=== PATIENT | female | born 1945 | race Caucasian/White ===

== ENCOUNTER → 2017-10-16 | Outpatient (CLI) | payer MEDICARE ==
[~2017-10-16] MED LIST: ALLO100T PO; ASCO10007 PO; ASPI-555 PO; BENZ200C53 PO; BETA1TAB18 PO; BI EST VG; CARV25TA PO; CHOL100018 PO; CLOBETASOL CREAM TP; CLOP75TA14 PO; FERR-63 PO; FURO20TA4 PO; GABA-318 PO; GABA-531 PO; INSU100V12 SQ; ISOS30TA6 PO; LEVO50TA11 PO; MAGN250T10 PO; OMEP40CA37 PO; OXYB5TAB10 PO; PARO40TA72 PO; SERT50TA PO; SIMV40TA59 PO; TRAM50TA2; TYL3 PO; ZOLP10TA6 PO
[2017-10-16 16:20] LABS: CREATININE 2.1 mg/dL (0.5-1.5); POTASSIUM 4.5 mmol/L (3.5-5.1)
== END | disposition home or self-care (01) ==
LOC: LAB 15:36
PROVIDERS: ATTEND Internal Medicine Cardiovascular Disease
DX: I73.9 Peripheral vascular disease, unspecified (principal); I13.0 Hypertensive heart and chronic kidney disease with heart failure and stage 1 through stage 4 chronic kidney disease, or unspecified chronic kidney disease; I50.22 Chronic systolic (congestive) heart failure; N18.3 Chronic kidney disease, stage 3 (moderate); E78.5 Hyperlipidemia, unspecified; E08.21 Diabetes mellitus due to underlying condition with diabetic nephropathy
CPT/HCPCS: 36415; 80048

== ENCOUNTER 2017-11-22 12:40 | Emergency (ER) | payer MEDICARE ==
[2017-11-22 14:08] LABS: BASOPHILS % (AUTO) 1.1 % (0.0-5.0); EOSINOPHILS % (AUTO) 5.4 % (0.0-8.0); HEMATOCRIT 35.3 % (36-48); LYMPHOCYTES % (AUTO) 22.8 % (21.0-51.0); MEAN CORPUSCULAR HEMOGLOBIN 33.3 pg (27.0-33.0); MEAN CORPUSCULAR HGB CONC 34.2 g/dL (32.0-36.0); MEAN CORPUSCULAR VOLUME 97.5 fL (79-99); MONOCYTES % (AUTO) 8.6 % (3.0-13.0); NEUTROPHILS % (AUTO) 62.1 % (40.0-77.0); PLATELET COUNT (AUTO) 194 K/uL (130-400); RED BLOOD CELL COUNT(AUTO) 3.62 MIL/uL (4.00-5.50); RED CELL DISTRIBUTION WIDTH 14.3 % (11.0-15.5); WHITE BLOOD COUNT (AUTO) 8.5 K/uL (4.8-10.8)
== END 2017-11-22 16:13 | disposition home or self-care (01) ==
LOC: EDH 12:40
DX: J16.8 Pneumonia due to other specified infectious organisms (principal); J44.9 Chronic obstructive pulmonary disease, unspecified; E11.9 Type 2 diabetes mellitus without complications; E78.5 Hyperlipidemia, unspecified; I10 Essential (primary) hypertension; Z95.1 Presence of aortocoronary bypass graft; Z90.710 Acquired absence of both cervix and uterus; Z90.49 Acquired absence of other specified parts of digestive tract; Z98.890 Other specified postprocedural states; Z87.891 Personal history of nicotine dependence
CPT/HCPCS: 36415; 71046; 85025

== ENCOUNTER → 2017-12-07 | Outpatient (CLI) | payer MEDICARE | END | disposition home or self-care (01) | LOC: SHCH 14:14 | PROVIDERS: ATTEND Internal Medicine Cardiovascular Disease | DX: I42.9 Cardiomyopathy, unspecified (principal) | CPT/HCPCS: 93306 ==

== ENCOUNTER 2018-07-17 12:42 | Emergency (ER) | payer MEDICARE ==
[2018-07-17 13:31] LABS: BASOPHILS % (AUTO) 1.4 % (0.0-5.0); EOSINOPHILS % (AUTO) 4.4 % (0.0-8.0); HEMATOCRIT 37.9 % (36-48); LYMPHOCYTES % (AUTO) 22.1 % (21.0-51.0); MEAN CORPUSCULAR HEMOGLOBIN 31.6 pg (27.0-33.0); MEAN CORPUSCULAR HGB CONC 33.8 g/dL (32.0-36.0); MEAN CORPUSCULAR VOLUME 93.5 fL (79-99); MONOCYTES % (AUTO) 6.5 % (3.0-13.0); NEUTROPHILS % (AUTO) 65.6 % (40.0-77.0); PLATELET COUNT (AUTO) 220 K/uL (130-400); RED BLOOD CELL COUNT(AUTO) 4.06 MIL/uL (4.00-5.50); RED CELL DISTRIBUTION WIDTH 15.1 % (11.0-15.5)
[2018-07-17 13:41] LABS: CREATININE 1.6 mg/dL (0.5-1.5)
[2018-07-17 13:46] LABS: INR 0.95 (0.85-1.15); PARTIAL THROMBOPLASTIN TIME 26.4 SEC (26.3-35.5)
[2018-07-17] MEDS ORDERED: SODIUM CHLORIDE 0.9% 1000ML 1,000 ML IV ONE (15:12)
[2018-07-17] MEDS ORDERED: IOHEXOL-350 75 ML VIAL IV ONE (16:03)
[2018-07-17] MEDS ORDERED: IOHEXOL-350 50ML VIAL IV ONE (16:03)
== END 2018-07-17 23:49 | disposition home or self-care (01) ==
LOC: EDH 12:42
DX: I97.630 Postprocedural hematoma of a circulatory system organ or structure following a cardiac catheterization (principal); Y83.8 Other surgical procedures as the cause of abnormal reaction of the patient, or of later complication, without mention of misadventure at the time of the procedure; Y82.8 Other medical devices associated with adverse incidents
CPT/HCPCS: 36415; 75635; 76882; 80048; 82948; 85025; 85610; 85730; 99285; J7030; Q9967 ×2

== ENCOUNTER → 2018-10-07 | Outpatient (CLI) | payer MEDICARE ==
[~2018-10-07] MED LIST changes: -GABA-318 PO; +GABA600T10 PO
== END | disposition home or self-care (01) ==
LOC: RAH 07:46
PROVIDERS: ATTEND Internal Medicine Gastroenterology
DX: R93.3 Abnormal findings on diagnostic imaging of other parts of digestive tract (principal)
CPT/HCPCS: 74270

== ENCOUNTER 2019-01-02 09:25 | Inpatient (IN) | payer MEDICARE ==
[~2019-01-02] VITALS: Ht 157.5 cm; Wt 74.5 kg
[~2019-01-02 09:25] MED LIST changes: +DOXY100C2 PO
[2019-01-02] MEDS ORDERED: AMPICILLIN SODIUM/SULBACTAM NA 1.5GM VIAL ONE (09:58)
[2019-01-02] MEDS ORDERED: SODIUM CHLORIDE 0.9% 100 ML IV ONE (09:58)
[2019-01-02 10:09] LABS: CREATININE 2.2 mg/dL (0.5-1.5); POTASSIUM 4.1 mmol/L (3.5-5.1)
[2019-01-02 10:10] LABS: BASOPHILS % (AUTO) 0.7 % (0.0-5.0); EOSINOPHILS % (AUTO) 2.7 % (0.0-8.0); LYMPHOCYTES % (AUTO) 16.6 % (21.0-51.0); MEAN CORPUSCULAR HEMOGLOBIN 31.8 pg (27.0-33.0); MEAN CORPUSCULAR HGB CONC 34.1 g/dL (32.0-36.0); MEAN CORPUSCULAR VOLUME 93.3 fL (79-99); MONOCYTES % (AUTO) 9.4 % (3.0-13.0); NEUTROPHILS % (AUTO) 70.6 % (40.0-77.0); PLATELET COUNT (AUTO) 189 K/uL (130-400); RED BLOOD CELL COUNT(AUTO) 3.65 MIL/uL (4.00-5.50); WHITE BLOOD COUNT (AUTO) 8.9 K/uL (4.8-10.8)
[2019-01-02 10:14] LABS: ALBUMIN 3.3 g/dL (3.5-5.0); BILIRUBIN,TOTAL 0.3 mg/dL (0.2-1.0); TOTAL PROTEIN, SERUM 7.6 g/dL (6.0-8.3)
[2019-01-02] MEDS ORDERED: VANCOMYCIN 1GM+NS 250ML 250 ML IV ONE (10:31)
[2019-01-02] MEDS ORDERED: ACETAMINOPHEN 325 MG TAB ONE (11:03)
[2019-01-02 12:30] VITALS: BP 131/64
[2019-01-02] MEDS ORDERED: ZOSYN 3.375GM+NS 50ML 50 ML IV SCH (13:30)
[2019-01-02] MEDS ORDERED: ONDANSETRON HCL 4 MG/2 ML VIAL IV PRN (14:15)
[2019-01-02] MEDS ORDERED: ACETAMINOPHEN 325 MG TAB PO PRN ×2 (14:15)
[2019-01-02] MEDS: SODIUM CHLORIDE 0.9% 1000ML 1,000 ML IV SCH (14:49)
[2019-01-02 14:59] LABS: BASOPHILS % (AUTO) 0.9 % (0.0-5.0); EOSINOPHILS % (AUTO) 2.4 % (0.0-8.0); HEMATOCRIT 33.4 % (36-48); LYMPHOCYTES % (AUTO) 23.9 % (21.0-51.0); MEAN CORPUSCULAR HEMOGLOBIN 31.4 pg (27.0-33.0); MEAN CORPUSCULAR HGB CONC 33.5 g/dL (32.0-36.0); MEAN CORPUSCULAR VOLUME 93.7 fL (79-99); MONOCYTES % (AUTO) 8.4 % (3.0-13.0); NEUTROPHILS % (AUTO) 64.4 % (40.0-77.0); NUCLEATED RED BLOOD CELLS 0.1 % (0.0-0.19); PLATELET COUNT (AUTO) 184 K/uL (130-400); RED BLOOD CELL COUNT(AUTO) 3.57 MIL/uL (4.00-5.50); RED CELL DISTRIBUTION WIDTH 14.9 % (11.0-15.5); WHITE BLOOD COUNT (AUTO) 7.8 K/uL (4.8-10.8)
[2019-01-02 15:15] LABS: INR 0.98 (0.85-1.15); PARTIAL THROMBOPLASTIN TIME 32.4 SEC (26.3-35.5); PROTHROMBIN TIME 10.3 SEC (9.6-11.6)
[2019-01-02 16:00] VITALS: BP 123/61
[2019-01-02] MEDS: INSULIN HUMULIN R 100 UNIT/ML 3ML SQ SCH ×2 (16:30→21:00)
--- NOTE | 2019-01-02 18:27 | NUR ---
NOTIFIED/CALLED DR. BO CELL TO ASK REGARDING HEPARIN ORDER. LEFT MESSAGE TO CALL BACK AT [phone]. AWAITING CALL BACK. PATIENT SHOWS NO SIGNS OF BLEEDING . PT/INR/PTT AT 10.3/0.98/32.4 HEMO/HCT 11.2/33.4
[2019-01-02] MEDS ORDERED: HEPARIN SODIUM 5000UNIT/ML 1ML VIAL IV SCH (19:00)
[2019-01-02] MEDS: HEPARIN 25000 UNITS/250 ML D5W 250 ML IV SCH (19:36)
--- NOTE | 2019-01-02 19:36 | NUR ---
STARTED HEPARIN DRIP AT 1300 UNITS/ 13 CC HOUR INFORMED ONCOMING NURSE TO OBSERVE PTT AND FOLLOW PROTOCOL . PATIENT INSTRUCTED NOT TO BE REMOVING SKIN FROM RIGHT GREAT TOE. INFORMED PATIENT REGARDING S/S OF BLEEDING FROM HEPARIN DRIP.
[2019-01-02] MEDS: HYDROCODONE/ACETAMINOPHEN 5/325 MG TAB PO PRN (19:37)
[2019-01-02 20:00] VITALS: BP 147/72
--- NOTE | 2019-01-02 20:37 | NUR ---
INITIAL NURSING ASSESSMENT Pt. admitted on the floor with gangrene to the first toe, pt in stable condition, accompanied by to the floor, pt. 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 Nursing will continue to follow up. Addendum: 01/02/19 at 2047 by KATY BACK RN RN INITIAL NURSING ASSESSMENT Pt. admitted on the floor with gangrene to the right first toe, pt in stable condition, accompanied by to the floor, pt. 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 Nursing will continue to follow up.
[2019-01-02] MEDS: ZOSYN 3.375GM+NS 50ML 50 ML IV SCH (21:06)
[2019-01-03] VITALS: BP 141/52
[2019-01-03 03:00] VITALS: BP 157/72
[2019-01-03] MEDS: INSULIN HUMULIN R 100 UNIT/ML 3ML SQ SCH ×4 (06:31→20:58)
[2019-01-03] MEDS: SODIUM CHLORIDE 0.9% 1000ML 1,000 ML IV SCH ×3 (06:50→15:30)
[2019-01-03 07:00] VITALS: BP 164/79
[2019-01-03] MEDS ORDERED: TRAMADOL HCL 50 MG TABLET PO PRN (08:15)
[2019-01-03] MEDS: MAGNESIUM OXIDE 400 MG TABLET PO SCH (08:46)
[2019-01-03] MEDS: ZOSYN 3.375GM+NS 50ML 50 ML IV SCH ×2 (08:46→20:54)
[2019-01-03] MEDS: FAMOTIDINE 20MG TAB 20 MG TAB PO SCH (08:46)
[2019-01-03] MEDS: CLOPIDOGREL BISULFATE 75 MG TAB PO SCH (08:46)
[2019-01-03] MEDS: ASPIRIN 81MG TAB.CHEW PO SCH (08:46)
[2019-01-03] MEDS: FUROSEMIDE 20 MG TABLET PO SCH (08:46)
[2019-01-03] MEDS: ALLOPURINOL 100 MG TABLET PO SCH (08:47)
[2019-01-03] MEDS: ISOSORBIDE MONO 30MG TAB SR PO SCH (08:47)
[2019-01-03] MEDS: LEVOTHYROXINE 50 MCG TABLET PO SCH (08:47)
[2019-01-03] MEDS: PAROXETINE HCL 20 MG TABLET PO SCH (08:48)
[2019-01-03] MEDS: CARVEDILOL 25 MG TABLET PO SCH ×2 (08:48→20:56)
[2019-01-03] MEDS: HYDROCODONE/ACETAMINOPHEN 5/325 MG TAB PO PRN ×3 (08:49→23:41)
[2019-01-03] MEDS: VIT D PO SCH (08:50)
[2019-01-03 08:58] LABS: HEMATOCRIT 33.7 % (36-48); MEAN CORPUSCULAR HEMOGLOBIN 30.8 pg (27.0-33.0); MEAN CORPUSCULAR HGB CONC 33.3 g/dL (32.0-36.0); MEAN CORPUSCULAR VOLUME 92.7 fL (79-99); PLATELET COUNT (AUTO) 176 K/uL (130-400); RED BLOOD CELL COUNT(AUTO) 3.63 MIL/uL (4.00-5.50); RED CELL DISTRIBUTION WIDTH 14.8 % (11.0-15.5); WHITE BLOOD COUNT (AUTO) 9.2 K/uL (4.8-10.8)
[2019-01-03 09:11] LABS: CREATININE 1.8 mg/dL (0.5-1.5); POTASSIUM 3.8 mmol/L (3.5-5.1)
[2019-01-03 09:15] LABS: INR 1.02 (0.85-1.15); PROTHROMBIN TIME 10.7 SEC (9.6-11.6)
[2019-01-03 09:24] LABS: PARTIAL THROMBOPLASTIN TIME 89.2 SEC (26.3-35.5)
[2019-01-03 11:00] VITALS: BP 102/50
[2019-01-03] MEDS ORDERED: IOHEXOL-350 75 ML VIAL IV ONE (13:00)
[2019-01-03] MEDS ORDERED: IOHEXOL-350 50ML VIAL IV ONE (13:00)
[2019-01-03] MEDS: METRONIDAZOLE 250 MG TABLET PO SCH ×2 (13:46→18:52)
--- NOTE | 2019-01-03 15:04 | NUR ---
CM note Met w patient, aaox3, lives with spouse, Jose Zimmerman, who will provide transport home, has didi gurrola, rolling walker, shower chair; has had Home health in the past, not currently. No provider. Feels safe to DC to home. CM to follow. anticipating intervention. Addendum: 01/03/19 at 1517 by COREY MCKINNEY RN CM Amended: Links added.
[2019-01-03 16:00] VITALS: BP 106/51
[2019-01-03] MEDS: HEPARIN 25000 UNITS/250 ML D5W 250 ML IV SCH (17:40)
[2019-01-03 20:00] VITALS: BP 152/65
[2019-01-03] MEDS: ZOLPIDEM TARTRATE 5 MG TAB PO SCH (20:55)
[2019-01-03] MEDS: SERTRALINE HCL 50 MG TABLET PO SCH (20:57)
[2019-01-03] MEDS: SIMVASTATIN 20 MG TABLET PO SCH (20:57)
[2019-01-03] MEDS: GUAIFENESIN 600 MG TABLET.ER PO SCH (20:57)
[2019-01-03] MEDS: GABAPENTIN 300 MG CAPSULE PO SCH (20:57)
[2019-01-03] MEDS: OXYBUTYNIN CHLORIDE 5 MG TABLET PO SCH (20:57)
[2019-01-03 21:25] LABS: APPEARANCE,URINE Clear (CLEAR); BILIRUBIN,URINE Negative (NEGATIVE); COLOR,URINE Yellow (YELLOW); GLUCOSE, URINE (UA) Negative (NEGATIVE); KETONES,URINE Negative (NEGATIVE); LEUKOCYTE ESTERASE ,URINE Trace (NEGATIVE); NITRATE,URINE Negative (NEGATIVE); OCCULT BLOOD,URINE Small (NEGATIVE); PH,URINE 5.5 (5.0-8.0); PROTEIN,URINE Trace mg/dL (NEGATIVE); UROBILINOGEN,URINE 0.2 mg/dL (0.2-1.0)
[2019-01-03 21:39] LABS: BACTERIA,URINE Rare /HPF (None Seen); SQUAMOUS EPITHELIAL CELL,UR Rare /HPF (0-2)
[2019-01-04] VITALS (7 sets, daily range): BP systolic 146–157; BP diastolic 64–90
[2019-01-04 01:17] LABS: HEMATOCRIT 30.5 % (36-48); MEAN CORPUSCULAR HEMOGLOBIN 31.7 pg (27.0-33.0); MEAN CORPUSCULAR HGB CONC 33.9 g/dL (32.0-36.0); MEAN CORPUSCULAR VOLUME 93.5 fL (79-99); NUCLEATED RED BLOOD CELLS 0.1 % (0.0-0.19); PLATELET COUNT (AUTO) 160 K/uL (130-400); RED BLOOD CELL COUNT(AUTO) 3.26 MIL/uL (4.00-5.50); RED CELL DISTRIBUTION WIDTH 14.5 % (11.0-15.5); WHITE BLOOD COUNT (AUTO) 10.2 K/uL (4.8-10.8)
[2019-01-04 01:28] LABS: CREATININE 1.6 mg/dL (0.5-1.5); MAGNESIUM 1.2 mg/dL (1.80-2.40); PHOSPHORUS 3.2 mg/dL (2.5-4.9); POTASSIUM 3.5 mmol/L (3.5-5.1); URIC ACID 4.6 mg/dL (2.6-7.2)
[2019-01-04] MEDS: SODIUM CHLORIDE 0.9% 1000ML 1,000 ML IV SCH ×3 (02:57→22:12)
[2019-01-04] MEDS: METRONIDAZOLE 250 MG TABLET PO SCH ×3 (03:38→19:03)
[2019-01-04] MEDS: MAGNESIUM 2GM PREMIX 50ML 50 ML IV PRN (03:47)
[2019-01-04] MEDS: INSULIN HUMULIN R 100 UNIT/ML 3ML SQ SCH ×4 (05:48→20:42)
--- NOTE | 2019-01-04 07:40 | NUR ---
Dr. Duong in to see pt, states he is going to consult Dr. Llanes and will personally call him.
[2019-01-04] MEDS: VIT D PO SCH (09:00)
[2019-01-04] MEDS: ZOSYN 3.375GM+NS 50ML 50 ML IV SCH ×2 (10:33→22:10)
[2019-01-04] MEDS: FAMOTIDINE 20MG TAB 20 MG TAB PO SCH (10:34)
[2019-01-04] MEDS: ASPIRIN 81MG TAB.CHEW PO SCH (10:34)
[2019-01-04] MEDS: CLOPIDOGREL BISULFATE 75 MG TAB PO SCH (10:34)
[2019-01-04] MEDS: MAGNESIUM OXIDE 400 MG TABLET PO SCH (10:34)
[2019-01-04] MEDS: ALLOPURINOL 100 MG TABLET PO SCH (10:34)
[2019-01-04] MEDS: PAROXETINE HCL 20 MG TABLET PO SCH (10:34)
[2019-01-04] MEDS: ISOSORBIDE MONO 30MG TAB SR PO SCH (10:34)
[2019-01-04] MEDS: FUROSEMIDE 20 MG TABLET PO SCH (10:34)
[2019-01-04] MEDS: LEVOTHYROXINE 50 MCG TABLET PO SCH (10:34)
[2019-01-04] MEDS: GUAIFENESIN 600 MG TABLET.ER PO SCH ×2 (10:35→22:11)
[2019-01-04] MEDS: CARVEDILOL 25 MG TABLET PO SCH ×2 (10:35→22:12)
--- NOTE | 2019-01-04 13:22 | NUR ---
Attempted to get consent for release of information from 01/2018 Bilateral LE PCI/Stents, neither pt. nor unable to recall MD or information. to check paperwork at home and will bring information if he can find it. Inst. to notify nurse when info available.
[2019-01-04] MEDS: HEPARIN 25000 UNITS/250 ML D5W 250 ML IV SCH (15:34)
[2019-01-04] MEDS: HYDROCODONE/ACETAMINOPHEN 5/325 MG TAB PO PRN (17:35)
[2019-01-04] MEDS: ZOLPIDEM TARTRATE 5 MG TAB PO SCH ×2 (21:00→22:11)
[2019-01-04] MEDS: OXYBUTYNIN CHLORIDE 5 MG TABLET PO SCH (22:11)
[2019-01-04] MEDS: SERTRALINE HCL 50 MG TABLET PO SCH (22:11)
[2019-01-04] MEDS: GABAPENTIN 300 MG CAPSULE PO SCH (22:11)
[2019-01-04] MEDS: SIMVASTATIN 20 MG TABLET PO SCH (22:12)
[2019-01-05 01:36] LABS: HEMATOCRIT 31.5 % (36-48); MEAN CORPUSCULAR HEMOGLOBIN 31.8 pg (27.0-33.0); MEAN CORPUSCULAR HGB CONC 34.3 g/dL (32.0-36.0); MEAN CORPUSCULAR VOLUME 92.7 fL (79-99); PLATELET COUNT (AUTO) 178 K/uL (130-400); RED BLOOD CELL COUNT(AUTO) 3.39 MIL/uL (4.00-5.50); RED CELL DISTRIBUTION WIDTH 14.6 % (11.0-15.5); WHITE BLOOD COUNT (AUTO) 11.2 K/uL (4.8-10.8)
[2019-01-05 01:42] LABS: CREATININE 1.5 mg/dL (0.5-1.5); POTASSIUM 3.5 mmol/L (3.5-5.1)
[2019-01-05] MEDS: METRONIDAZOLE 250 MG TABLET PO SCH ×3 (03:37→18:21)
[2019-01-05] MEDS: HYDROCODONE/ACETAMINOPHEN 5/325 MG TAB PO PRN ×2 (03:38→18:21)
[2019-01-05 04:10] VITALS: BP 148/71
[2019-01-05] MEDS: MAGNESIUM 2GM PREMIX 50ML 50 ML IV PRN (04:31)
[2019-01-05] MEDS: INSULIN HUMULIN R 100 UNIT/ML 3ML SQ SCH ×4 (06:02→20:41)
[2019-01-05] MEDS: SODIUM CHLORIDE 0.9% 1000ML 1,000 ML IV SCH ×5 (07:30→20:42)
[2019-01-05 08:03] VITALS: BP 127/71
[2019-01-05] MEDS: VIT D PO SCH (09:00)
[2019-01-05] MEDS: ZOSYN 3.375GM+NS 50ML 50 ML IV SCH ×2 (09:01→20:41)
[2019-01-05] MEDS: FUROSEMIDE 20 MG TABLET PO SCH (09:02)
[2019-01-05] MEDS: ASPIRIN 81MG TAB.CHEW PO SCH (09:02)
[2019-01-05] MEDS: ISOSORBIDE MONO 30MG TAB SR PO SCH (09:02)
[2019-01-05] MEDS: MAGNESIUM OXIDE 400 MG TABLET PO SCH (09:02)
[2019-01-05] MEDS: PAROXETINE HCL 20 MG TABLET PO SCH (09:03)
[2019-01-05] MEDS: CARVEDILOL 25 MG TABLET PO SCH ×2 (09:03→20:41)
[2019-01-05] MEDS: LEVOTHYROXINE 50 MCG TABLET PO SCH (09:03)
[2019-01-05] MEDS: ALLOPURINOL 100 MG TABLET PO SCH (09:03)
[2019-01-05] MEDS: FAMOTIDINE 20MG TAB 20 MG TAB PO SCH (09:03)
[2019-01-05] MEDS: GUAIFENESIN 600 MG TABLET.ER PO SCH ×2 (09:03→20:41)
[2019-01-05] MEDS: CLOPIDOGREL BISULFATE 75 MG TAB PO SCH (09:04)
[2019-01-05 11:49] VITALS: BP 135/54
--- NOTE | 2019-01-05 12:00 | NUR ---
KAYLA CALVO FROM [facility] VISITED WITH PATIENT. ASKED KAYLA IF HEPARIN DRIP NEEDED TO BE STOPPED BEFORE REBRANDER. KAYLA STATED THERE WAS NO NEED TO STOP HEPARIN DRIP
[2019-01-05 16:02] VITALS: BP 129/76
[2019-01-05] MEDS: HEPARIN 25000 UNITS/250 ML D5W 250 ML IV SCH (16:06)
[2019-01-05 20:19] VITALS: BP 161/83
[2019-01-05] MEDS: GABAPENTIN 300 MG CAPSULE PO SCH (20:40)
[2019-01-05] MEDS: SIMVASTATIN 20 MG TABLET PO SCH (20:40)
[2019-01-05] MEDS: ZOLPIDEM TARTRATE 5 MG TAB PO SCH ×2 (20:40→20:41)
[2019-01-05] MEDS: SERTRALINE HCL 50 MG TABLET PO SCH (20:40)
[2019-01-05] MEDS: OXYBUTYNIN CHLORIDE 5 MG TABLET PO SCH (20:40)
[2019-01-05] MEDS: ACETYLCYSTEINE 20% 200MG/ML 4ML VIAL PO SCH (21:13)
[2019-01-05 23:47] VITALS: BP 142/63
[2019-01-06] VITALS (7 sets, daily range): BP systolic 74–164; BP diastolic 49–90
[2019-01-06 01:45] LABS: MEAN CORPUSCULAR HGB CONC 34.4 g/dL (32.0-36.0); PLATELET COUNT (AUTO) 159 K/uL (130-400); RED BLOOD CELL COUNT(AUTO) 3.01 MIL/uL (4.00-5.50); WHITE BLOOD COUNT (AUTO) 9.5 K/uL (4.8-10.8)
[2019-01-06 01:54] LABS: CREATININE 1.2 mg/dL (0.5-1.5)
[2019-01-06 02:01] LABS: POTASSIUM 2.9 mmol/L (3.5-5.1)
[2019-01-06] MEDS: METRONIDAZOLE 250 MG TABLET PO SCH ×3 (02:29→18:57)
[2019-01-06] MEDS: MAGNESIUM 2GM PREMIX 50ML 50 ML IV PRN (02:29)
[2019-01-06] MEDS ORDERED: POTASSIUM CHLORIDE 10% ELIXIR 20 MEQ/15 ML UDCUP PO PRN (02:30)
[2019-01-06] MEDS: POTASSIUM CHLORIDE 20MEQ/100ML 100 ML IV PRN ×2 (03:47→06:15)
[2019-01-06] MEDS: LIDOCAINE HCL-MPF 1% 2ML VIAL IVP PRN ×2 (03:47→06:16)
[2019-01-06] MEDS: INSULIN HUMULIN R 100 UNIT/ML 3ML SQ SCH ×4 (06:14→21:00)
[2019-01-06] MEDS: SODIUM CHLORIDE 0.9% 1000ML 1,000 ML IV SCH ×2 (06:15→15:09)
[2019-01-06] MEDS: POTASSIUM CHLORIDE 10% ELIXIR 20 MEQ/15 ML UDCUP PO SCH ×4 (08:00→14:25)
[2019-01-06] MEDS: ASPIRIN 81MG TAB.CHEW PO SCH (09:00)
[2019-01-06] MEDS: VIT D PO SCH (09:00)
[2019-01-06] MEDS: CLOPIDOGREL BISULFATE 75 MG TAB PO SCH (09:00)
--- NOTE | 2019-01-06 09:05 | NUR ---
STOOL SAMPLE Sent for guaiac.
[2019-01-06] MEDS: ZOSYN 3.375GM+NS 50ML 50 ML IV SCH ×2 (09:59→22:31)
[2019-01-06] MEDS: ACETYLCYSTEINE 20% 200MG/ML 4ML VIAL PO SCH ×2 (10:07→22:31)
[2019-01-06] MEDS: FUROSEMIDE 20 MG TABLET PO SCH (10:08)
[2019-01-06] MEDS: ISOSORBIDE MONO 30MG TAB SR PO SCH (10:08)
[2019-01-06] MEDS: LEVOTHYROXINE 50 MCG TABLET PO SCH (10:08)
[2019-01-06] MEDS: GUAIFENESIN 600 MG TABLET.ER PO SCH ×2 (10:08→22:32)
[2019-01-06] MEDS: ALLOPURINOL 100 MG TABLET PO SCH (10:08)
[2019-01-06] MEDS: MAGNESIUM OXIDE 400 MG TABLET PO SCH (10:08)
[2019-01-06] MEDS: PAROXETINE HCL 20 MG TABLET PO SCH (10:08)
[2019-01-06] MEDS: FAMOTIDINE 20MG TAB 20 MG TAB PO SCH (10:09)
[2019-01-06] MEDS: CARVEDILOL 25 MG TABLET PO SCH ×2 (10:09→22:32)
--- NOTE | 2019-01-06 11:47 | NUR ---
DECREASED BLOOD PRESSURE Paged hospitalist to report low blood pressure at this time 74/49 MAP 59 HR 71 RR 18 02 SAT on 2L/min VIA N/C 97%. Patient asymptomatic. She just states she feels tired. Has been sleeping all morning, on/off. Decreased appetite. Breakfast intake was zero. Lunch is clears and just had a bite of jello. NS at 100mL/hr as ordered. And HOB at 20 degrees.
[2019-01-06] MEDS ORDERED: SODIUM CHLORIDE 0.9% 250 ML IV ONE (12:00)
--- NOTE | 2019-01-06 12:00 | NUR ---
HEPARIN DRIP Turned off at this time as ordered by Dr. Stovall.
--- NOTE | 2019-01-06 12:14 | NUR ---
NS 250mL BOLUS Nurse Practitioner Carlie Bajwa notified of BP. Ordered 250mL NS bolus. Infusing.
[2019-01-06] MEDS ORDERED: SODIUM CHLORIDE 0.9% 250 ML IV SCH (12:15)
--- NOTE | 2019-01-06 12:22 | NUR ---
BLOOD PRESSURE RECHECK 167 HR 71. Patient resting. Asymptomatic.
--- NOTE | 2019-01-06 14:18 | NUR ---
POTASSIUM CHLORIDE 30mEq LAST DOSE Patient received a total of 100mEq of potassium chloride today for level 2.9 Addendum: 01/06/19 at 1420 by ROD PASCUAL RN RN LAST DOSE OF POTASSIUM CH,LORIDE 30mEq PO given at this time.
--- NOTE | 2019-01-06 15:55 | NUR ---
NURSE PRACTITIONER Carlie Bajwa notified that Dr. Stovall requests medical clearance S/T hemoglobin dropped together with positive guaiac. She is aware.
--- NOTE | 2019-01-06 16:50 | NUR ---
GI CONSULT Spoke to Ronna at Dr. Crockett's office. 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
--- NOTE | 2019-01-06 18:50 | NUR ---
HEPARIN DRIP Asked Nurse Practitioner Carlie Bajwa about heparin drip, which was stopped at noon as ordered by Dr. Stovall. Stated to ask cardiology. Paged cardiology, got order from Dr. Courtney to keep off.
[2019-01-06] MEDS: SIMVASTATIN 20 MG TABLET PO SCH (22:31)
[2019-01-06] MEDS: ZOLPIDEM TARTRATE 5 MG TAB PO SCH (22:32)
[2019-01-06] MEDS: OXYBUTYNIN CHLORIDE 5 MG TABLET PO SCH (22:32)
[2019-01-06] MEDS: SERTRALINE HCL 50 MG TABLET PO SCH (22:32)
[2019-01-06] MEDS: GABAPENTIN 300 MG CAPSULE PO SCH (22:33)
[2019-01-07] VITALS (9 sets, daily range): BP systolic 139–167; BP diastolic 71–82
[2019-01-07] MEDS: METRONIDAZOLE 250 MG TABLET PO SCH ×3 (02:30→21:26)
[2019-01-07] MEDS: SODIUM CHLORIDE 0.9% 1000ML 1,000 ML IV SCH ×3 (02:30→23:13)
[2019-01-07 04:39] LABS: HEMATOCRIT 28.3 % (36-48); MEAN CORPUSCULAR HEMOGLOBIN 31.1 pg (27.0-33.0); MEAN CORPUSCULAR HGB CONC 33.4 g/dL (32.0-36.0); MEAN CORPUSCULAR VOLUME 93.3 fL (79-99); PLATELET COUNT (AUTO) 167 K/uL (130-400); RED BLOOD CELL COUNT(AUTO) 3.03 MIL/uL (4.00-5.50); WHITE BLOOD COUNT (AUTO) 10.1 K/uL (4.8-10.8)
[2019-01-07 05:01] LABS: CREATININE 1.6 mg/dL (0.5-1.5); POTASSIUM 4.7 mmol/L (3.5-5.1)
[2019-01-07] MEDS: INSULIN HUMULIN R 100 UNIT/ML 3ML SQ SCH ×4 (07:30→21:00)
[2019-01-07] MEDS: GUAIFENESIN 600 MG TABLET.ER PO SCH ×2 (09:00→21:23)
[2019-01-07] MEDS: FUROSEMIDE 20 MG TABLET PO SCH (09:00)
[2019-01-07] MEDS: VIT D PO SCH (09:00)
[2019-01-07] MEDS: FAMOTIDINE 20MG TAB 20 MG TAB PO SCH (09:00)
[2019-01-07] MEDS: ISOSORBIDE MONO 30MG TAB SR PO SCH (09:00)
[2019-01-07] MEDS: MAGNESIUM OXIDE 400 MG TABLET PO SCH (09:00)
[2019-01-07] MEDS: PAROXETINE HCL 20 MG TABLET PO SCH (09:00)
[2019-01-07] MEDS: ALLOPURINOL 100 MG TABLET PO SCH (09:00)
[2019-01-07] MEDS: LEVOTHYROXINE 50 MCG TABLET PO SCH (09:00)
[2019-01-07] MEDS: ZOSYN 3.375GM+NS 50ML 50 ML IV SCH ×2 (09:27→21:23)
[2019-01-07] MEDS: CARVEDILOL 25 MG TABLET PO SCH ×2 (09:27→21:23)
[2019-01-07] MEDS ORDERED: HEPARIN 25,000 UNITS/250 ML IV PRN (14:45)
[2019-01-07] MEDS ORDERED: PHENYLEPHRINE HCL 10 MG/ML 1ML VIAL IV ONE (14:54)
[2019-01-07] MEDS ORDERED: PROPOFOL 10 MG/ML 20ML VIAL IV ONE (14:54)
--- NOTE | 2019-01-07 15:30 | NUR ---
Nutrition intervention: Nutrition notification for LOS x5. Pt admitted for gangrene to right 1st toe. At time of RD visit pt in procedure. RD to return for further nutrition intervention. Recommendations: When medically feasible, advance diet therapy to General Heart Healthy, CCD 75gm diet therapy. Please consult RD as nutrition concerns arise. Addendum: 01/07/19 at [address] Amended: Links added.
[2019-01-07] MEDS ORDERED: FENTANYL CITRATE PF 50 MCG/1 ML 2ML VIAL ONE (15:40)
[2019-01-07] MEDS ORDERED: MIDAZOLAM HCL 1 MG/ML 2ML VIAL ONE (15:41)
[2019-01-07] MEDS: GABAPENTIN 300 MG CAPSULE PO SCH (21:22)
[2019-01-07] MEDS: ZOLPIDEM TARTRATE 5 MG TAB PO SCH (21:22)
[2019-01-07] MEDS: OXYBUTYNIN CHLORIDE 5 MG TABLET PO SCH (21:23)
[2019-01-07] MEDS: SERTRALINE HCL 50 MG TABLET PO SCH (21:23)
[2019-01-07] MEDS: SIMVASTATIN 20 MG TABLET PO SCH (21:23)
[2019-01-08] VITALS (27 sets, daily range): BP systolic 108–192; BP diastolic 48–88
[2019-01-08] MEDS: METRONIDAZOLE 250 MG TABLET PO SCH ×3 (02:46→23:16)
[2019-01-08 05:15] LABS: BASOPHILS % (AUTO) 0.6 % (0.0-5.0); EOSINOPHILS % (AUTO) 5.4 % (0.0-8.0); HEMATOCRIT 28.1 % (36-48); LYMPHOCYTES % (AUTO) 17.6 % (21.0-51.0); MEAN CORPUSCULAR HEMOGLOBIN 31.9 pg (27.0-33.0); MEAN CORPUSCULAR VOLUME 93.8 fL (79-99); NEUTROPHILS % (AUTO) 65.4 % (40.0-77.0); PLATELET COUNT (AUTO) 164 K/uL (130-400); RED CELL DISTRIBUTION WIDTH 15.2 % (11.0-15.5); WHITE BLOOD COUNT (AUTO) 8.4 K/uL (4.8-10.8)
[2019-01-08 05:25] LABS: CREATININE 1.5 mg/dL (0.5-1.5); MAGNESIUM 1.7 mg/dL (1.80-2.40); POTASSIUM 4.2 mmol/L (3.5-5.1)
[2019-01-08] MEDS: INSULIN HUMULIN R 100 UNIT/ML 3ML SQ SCH ×4 (05:35→21:00)
[2019-01-08] MEDS: MAGNESIUM 2GM PREMIX 50ML 50 ML IV PRN (05:40)
--- NOTE | 2019-01-08 06:10 | NUR ---
transferred to GI LAB TRANSFERRED TO GI LAB PER BED ,V/S STABLE ,NO C/O PAIN OR DISCOMFORT ,ENDORSED CARE TO TRANSPORTER/TECH Addendum: 01/08/19 at 0626 by ESEQUIEL MAGAÑA RN RN Amended: Links added.
[2019-01-08] MEDS ORDERED: SIMETHICONE 40 MG/0.6 ML ML ONE (06:39)
[2019-01-08] MEDS ORDERED: PROPOFOL 10 MG/ML 20ML VIAL IV ONE (06:41)
[2019-01-08] MEDS: VIT D PO SCH (09:00)
[2019-01-08] MEDS: FUROSEMIDE 20 MG TABLET PO SCH (10:29)
[2019-01-08] MEDS: GUAIFENESIN 600 MG TABLET.ER PO SCH ×2 (10:29→23:16)
[2019-01-08] MEDS: PAROXETINE HCL 20 MG TABLET PO SCH (10:29)
[2019-01-08] MEDS: ALLOPURINOL 100 MG TABLET PO SCH (10:30)
[2019-01-08] MEDS: ISOSORBIDE MONO 30MG TAB SR PO SCH (10:30)
[2019-01-08] MEDS: CARVEDILOL 25 MG TABLET PO SCH ×2 (10:30→23:17)
[2019-01-08] MEDS: FAMOTIDINE 20MG TAB 20 MG TAB PO SCH (10:30)
[2019-01-08] MEDS: MAGNESIUM OXIDE 400 MG TABLET PO SCH (10:30)
[2019-01-08] MEDS: LEVOTHYROXINE 50 MCG TABLET PO SCH (10:36)
[2019-01-08] MEDS: ZOSYN 3.375GM+NS 50ML 50 ML IV SCH ×2 (10:47→21:58)
[2019-01-08] MEDS: SODIUM CHLORIDE 0.9% 1000ML 1,000 ML IV SCH ×2 (10:48→22:00)
[2019-01-08] MEDS: LACTULOSE 20 GM/30 ML UDCUP PO PRN ×3 (11:36→14:21)
[2019-01-08] MEDS ORDERED: MAGNESIUM CITRATE 296 ML SOLUTION PO SCH (15:00)
[2019-01-08] MEDS ORDERED: PEG 3350/NA SULF,BICARB,CL/KCL 4000 ML SOLN PO SCH (16:00)
--- NOTE | 2019-01-08 21:05 | NUR ---
Medications Upon entering the pt's room I informed her of the medications that was due for her. I read over each medication and talked with the pt. The pt agreed to take the medications. After scanning the pt to give the medications the pt stated she was not going to take any medications. She also refused to let me change the NS for a new bag or give the zosyn. I left at this point to let the pt calm down.
--- NOTE | 2019-01-08 22:00 | NUR ---
Medications Sitter in the room informed me that the pt now wants to have the NS and zosyn. I went into the room and started the NS and the zosyn at this time. Pt still refused to take her night medication.
[2019-01-08] MEDS: OXYBUTYNIN CHLORIDE 5 MG TABLET PO SCH (23:16)
[2019-01-08] MEDS: ZOLPIDEM TARTRATE 5 MG TAB PO SCH (23:16)
[2019-01-08] MEDS: GABAPENTIN 300 MG CAPSULE PO SCH (23:16)
[2019-01-08] MEDS: SERTRALINE HCL 50 MG TABLET PO SCH (23:16)
--- NOTE | 2019-01-08 23:16 | NUR ---
Medications Cecilia informed me that now the pt was ready to take her night medications. I went into the room and went over the medications with the pt and gave her the night medications at this time.
[2019-01-08] MEDS: SIMVASTATIN 20 MG TABLET PO SCH (23:17)
[2019-01-09] VITALS (23 sets, daily range): BP systolic 118–188; BP diastolic 49–100
[2019-01-09] MEDS: METRONIDAZOLE 250 MG TABLET PO SCH ×3 (03:00→20:27)
[2019-01-09 05:49] LABS: BASOPHILS % (AUTO) 0.7 % (0.0-5.0); EOSINOPHILS % (AUTO) 5.3 % (0.0-8.0); HEMATOCRIT 27.7 % (36-48); MEAN CORPUSCULAR HEMOGLOBIN 31.2 pg (27.0-33.0); MEAN CORPUSCULAR HGB CONC 33.3 g/dL (32.0-36.0); MEAN CORPUSCULAR VOLUME 93.9 fL (79-99); MONOCYTES % (AUTO) 10.1 % (3.0-13.0); NEUTROPHILS % (AUTO) 64.9 % (40.0-77.0); PLATELET COUNT (AUTO) 225 K/uL (130-400); RED BLOOD CELL COUNT(AUTO) 2.95 MIL/uL (4.00-5.50); RED CELL DISTRIBUTION WIDTH 15.3 % (11.0-15.5); WHITE BLOOD COUNT (AUTO) 8.6 K/uL (4.8-10.8)
[2019-01-09 06:18] LABS: CREATININE 1.4 mg/dL (0.5-1.5); POTASSIUM 3.7 mmol/L (3.5-5.1)
[2019-01-09] MEDS: SODIUM CHLORIDE 0.9% 1000ML 1,000 ML IV SCH ×2 (06:27→16:45)
[2019-01-09] MEDS: INSULIN HUMULIN R 100 UNIT/ML 3ML SQ SCH ×4 (06:27→21:00)
[2019-01-09] MEDS: CARVEDILOL 25 MG TABLET PO SCH ×3 (09:00→20:34)
[2019-01-09] MEDS: ISOSORBIDE MONO 30MG TAB SR PO SCH (09:00)
[2019-01-09] MEDS: MAGNESIUM OXIDE 400 MG TABLET PO SCH (09:00)
[2019-01-09] MEDS: LEVOTHYROXINE 50 MCG TABLET PO SCH (09:00)
[2019-01-09] MEDS: ALLOPURINOL 100 MG TABLET PO SCH (09:00)
[2019-01-09] MEDS: PAROXETINE HCL 20 MG TABLET PO SCH (09:00)
[2019-01-09] MEDS: VIT D PO SCH (09:00)
[2019-01-09] MEDS: GUAIFENESIN 600 MG TABLET.ER PO SCH ×2 (09:00→20:27)
[2019-01-09] MEDS: FUROSEMIDE 20 MG TABLET PO SCH (09:00)
[2019-01-09] MEDS: ZOSYN 3.375GM+NS 50ML 50 ML IV SCH ×2 (09:00→20:27)
[2019-01-09] MEDS: FAMOTIDINE 20MG TAB 20 MG TAB PO SCH (09:00)
[2019-01-09] MEDS ORDERED: PROPOFOL 10 MG/ML 20ML VIAL IV ONE (14:09)
--- NOTE | 2019-01-09 15:16 | NUR ---
GOT COLONOSCOPY REPORT, SPOKE TO DR CEBALLOS HOSE INSPECTOR AND PATCHER, DR JOSEPH SAID TO GET CLEARANCE FROM HOSPITALIST. DR WILL NOT GIVE GI CLEARANCE
[2019-01-09] MEDS: GABAPENTIN 300 MG CAPSULE PO SCH (20:26)
[2019-01-09] MEDS: ZOLPIDEM TARTRATE 5 MG TAB PO SCH (20:26)
[2019-01-09] MEDS: SERTRALINE HCL 50 MG TABLET PO SCH (20:27)
[2019-01-09] MEDS: SIMVASTATIN 20 MG TABLET PO SCH (20:27)
[2019-01-09] MEDS: OXYBUTYNIN CHLORIDE 5 MG TABLET PO SCH (20:27)
[2019-01-10] VITALS (11 sets, daily range): BP systolic 135–183; BP diastolic 63–80
[2019-01-10] MEDS: SODIUM CHLORIDE 0.9% 1000ML 1,000 ML IV SCH ×3 (01:21→21:53)
[2019-01-10] MEDS: METRONIDAZOLE 250 MG TABLET PO SCH ×2 (02:29→11:13)
[2019-01-10] MEDS ORDERED: HYDRALAZINE HCL 20 MG/ML VIAL ONE (04:03)
[2019-01-10] MEDS ORDERED: HYDRALAZINE HCL 20 MG/ML VIAL IV PRN (04:15)
[2019-01-10 06:00] LABS: HEMATOCRIT 29.5 % (36-48); MEAN CORPUSCULAR HEMOGLOBIN 31.3 pg (27.0-33.0); MEAN CORPUSCULAR HGB CONC 33.5 g/dL (32.0-36.0); MEAN CORPUSCULAR VOLUME 93.5 fL (79-99); PLATELET COUNT (AUTO) 252 K/uL (130-400); RED BLOOD CELL COUNT(AUTO) 3.15 MIL/uL (4.00-5.50); WHITE BLOOD COUNT (AUTO) 9.4 K/uL (4.8-10.8)
[2019-01-10 06:05] LABS: INR 1.13 (0.85-1.15); PARTIAL THROMBOPLASTIN TIME 34.4 SEC (26.3-35.5); PROTHROMBIN TIME 11.8 SEC (9.6-11.6)
[2019-01-10] MEDS: INSULIN HUMULIN R 100 UNIT/ML 3ML SQ SCH ×4 (06:16→21:00)
[2019-01-10 06:24] LABS: CARBON DIOXIDE 16 mmol/L (21-32); CHLORIDE 111 mmol/L (101-111); CREATINE KINASE, TOTAL 124 U/L (21-232); CREATININE 1.1 mg/dL (0.5-1.5); GLOMERULAR FILTR. RATE CALC 51 mL/min (>60); GLUCOSE,RANDOM 102 mg/dL (70-105); MYOGLOBIN 176 ng/mL (10-92); POTASSIUM 3.5 mmol/L (3.5-5.1); SODIUM SERUM 142 mmol/L (136-145); TROPONIN I < 0.04 ng/mL (0.00-0.06); UREA NITROGEN, BLOOD 15 mg/dL (7-18)
[2019-01-10 07:58] LABS: EOSINOPHILS % (MANUAL) 2 % (1-6); LYMPHOCYTES % (MANUAL) 22 % (22-44); MAN.DIFF COMMENT-IMPRESSION MANUAL DIFFERENTIAL; MONOCYTES % (MANUAL) 5 % (2-9); SEGMENTED NEUTROPHILS % 71 % (40-70)
[2019-01-10 07:59] LABS: PLATELET MORPHOLOGY COMMENT ADEQUATE
--- NOTE | 2019-01-10 08:15 | NUR ---
DR SHEETS ROUNDED ON PATIENT AND SAID HER PROCEDURE WOULD BE WITH HIM AROUND 5PM TO SCHEDULED HER WITH MEDICAL ASSOCIATE FOR RIGHT LOWER EXTREMITY PERIPHERAL ANGIOGRAM. PROCEDURE SCHEDULED
[2019-01-10] MEDS: VIT D PO SCH (09:00)
[2019-01-10] MEDS: ISOSORBIDE MONO 30MG TAB SR PO SCH (09:20)
[2019-01-10] MEDS: PAROXETINE HCL 20 MG TABLET PO SCH (09:20)
[2019-01-10] MEDS: CARVEDILOL 25 MG TABLET PO SCH (09:21)
[2019-01-10] MEDS: LEVOTHYROXINE 50 MCG TABLET PO SCH (09:21)
[2019-01-10] MEDS: ALLOPURINOL 100 MG TABLET PO SCH (09:22)
[2019-01-10] MEDS: FAMOTIDINE 20MG TAB 20 MG TAB PO SCH (09:22)
[2019-01-10] MEDS: MAGNESIUM OXIDE 400 MG TABLET PO SCH (09:22)
[2019-01-10] MEDS: HYDROCODONE/ACETAMINOPHEN 5/325 MG TAB PO PRN (09:22)
[2019-01-10] MEDS: ZOSYN 3.375GM+NS 50ML 50 ML IV SCH (09:23)
[2019-01-10] MEDS: FUROSEMIDE 20 MG TABLET PO SCH (09:23)
[2019-01-10] MEDS: GUAIFENESIN 600 MG TABLET.ER PO SCH (09:23)
[2019-01-10] MEDS: ACETYLCYSTEINE 20% 200MG/ML 4ML VIAL PO SCH ×2 (09:41→10:26)
[2019-01-10] MEDS ORDERED: NITROGLYCERIN 5 MG/ML 10 ML VIAL IV ONE (18:14)
[2019-01-10] MEDS ORDERED: HEPARIN SODIUM 1000UNIT/ML 10ML VIAL ONE (18:14)
[2019-01-10] MEDS ORDERED: IODIXANOL 320 MG/ML 100 ML VIAL ONE (18:14)
[2019-01-10] MEDS ORDERED: LIDOCAINE HCL 2% 20ML ONE (18:14)
--- NOTE | 2019-01-10 18:58 | NUR ---
PATIENT DOWNSTAIR VIA BED FOR ANGIOPLASTY OF RIGHT LEG HUBAND WAITING IN ROOM
[2019-01-10] MEDS ORDERED: FENTANYL CITRATE PF 50 MCG/1 ML 2ML VIAL ONE (19:11)
[2019-01-10] MEDS ORDERED: MIDAZOLAM HCL 1 MG/ML 2ML VIAL ONE (19:11)
[2019-01-10] MEDS ORDERED: LABETALOL HCL 5 MG/ML 20ML VIAL IV ONE (19:54)
[2019-01-10] MEDS ORDERED: SODIUM CHLORIDE 0.9% 1000ML 1,000 ML IV SCH (20:15)
[2019-01-10] MEDS: ZOLPIDEM TARTRATE 5 MG TAB PO SCH (21:00)
--- NOTE | 2019-01-10 22:05 | NUR ---
PATIENT TRANSFERRED FROM INSTRUMENT LENS GENERATOR. S/P RT LEG ANGIOGRAM. LT GROIN SOFT WITHOUT BLEEDING OR HEMATOMA. DORSALIS PEDIS PULSES PALPABLE. BEDREST X 8 HRS. REMINDED PATIENT NOT TO LIFT OR BEND LT LEG. PATIENT VERBALIZED UNDERSTANDING. WILL CONTINUE TO MONITOR. CALL LIGHT WITHIN REACH.
--- NOTE | 2019-01-10 22:45 | NUR ---
INFORMED PATIENT PLAN FOR SURGERY (RIGHT FEMORAL BYPASS) IN A.M. REMINDED PATIENT NPO AFTER MIDNIGHT. PATIENT VERBALIZED UNDERSTANDING.
--- NOTE | 2019-01-10 23:05 | NUR ---
LT GROIN CHECKED FREQUENTLY. SITE SOFT WITHOUT BLEEDING OR HEMATOMA. PEDAL PULSES PALPABLE.
[2019-01-11] VITALS (30 sets, daily range): BP systolic 111–181; BP diastolic 45–79
--- NOTE | 2019-01-11 00:15 | NUR ---
LT GROIN CONTINUES TO BE SOFT WITHOUT BLEEDING OR HEMATOMA. WILL CONTINUE TO MONITOR.
[2019-01-11] MEDS: GUAIFENESIN 600 MG TABLET.ER PO SCH ×3 (00:28→20:44)
[2019-01-11] MEDS: SIMVASTATIN 20 MG TABLET PO SCH ×2 (00:28→20:43)
[2019-01-11] MEDS: GABAPENTIN 300 MG CAPSULE PO SCH ×2 (00:28→20:43)
[2019-01-11] MEDS: SERTRALINE HCL 50 MG TABLET PO SCH ×2 (00:29→20:44)
[2019-01-11] MEDS: CARVEDILOL 25 MG TABLET PO SCH ×3 (00:30→20:44)
[2019-01-11] MEDS: ZOSYN 3.375GM+NS 50ML 50 ML IV SCH ×3 (00:30→20:42)
[2019-01-11] MEDS: OXYBUTYNIN CHLORIDE 5 MG TABLET PO SCH ×2 (00:32→21:29)
[2019-01-11] MEDS: ACETYLCYSTEINE 20% 200MG/ML 4ML VIAL PO SCH ×3 (00:41→21:00)
[2019-01-11] MEDS: HYDROCODONE/ACETAMINOPHEN 5/325 MG TAB PO PRN ×3 (00:50→22:57)
--- NOTE | 2019-01-11 02:05 | NUR ---
LT GROIN STABLE.
[2019-01-11] MEDS: METRONIDAZOLE 250 MG TABLET PO SCH ×3 (03:00→19:00)
[2019-01-11] MEDS: LIDOCAINE HCL-MPF 1% 2ML VIAL IVP PRN (03:21)
[2019-01-11] MEDS: POTASSIUM CHLORIDE 20MEQ/100ML 100 ML IV PRN (03:21)
[2019-01-11 03:42] LABS: BASOPHILS % (AUTO) 0.7 % (0.0-5.0); EOSINOPHILS % (AUTO) 3.6 % (0.0-8.0); HEMATOCRIT 26.9 % (36-48); LYMPHOCYTES % (AUTO) 18.2 % (21.0-51.0); MEAN CORPUSCULAR HEMOGLOBIN 31.2 pg (27.0-33.0); MEAN CORPUSCULAR HGB CONC 33.6 g/dL (32.0-36.0); MEAN CORPUSCULAR VOLUME 92.8 fL (79-99); MONOCYTES % (AUTO) 9.6 % (3.0-13.0); NEUTROPHILS % (AUTO) 67.9 % (40.0-77.0); PLATELET COUNT (AUTO) 254 K/uL (130-400); WHITE BLOOD COUNT (AUTO) 8.8 K/uL (4.8-10.8)
[2019-01-11 03:49] LABS: CREATININE 1.1 mg/dL (0.5-1.5); INR 1.16 (0.85-1.15); PARTIAL THROMBOPLASTIN TIME 32.4 SEC (26.3-35.5); POTASSIUM 3.2 mmol/L (3.5-5.1); PROTHROMBIN TIME 12.1 SEC (9.6-11.6)
--- NOTE | 2019-01-11 05:00 | NUR ---
2ND HIBICLENS BATH GIVEN BY MARTIR KHAN.
--- NOTE | 2019-01-11 05:30 | NUR ---
RT. GROIN STABLE. NO BLEEDING OR HEMATOMA.
[2019-01-11 06:11] LABS: HEMOGLOBIN A1C 6.8 % (4.0-6.0)
[2019-01-11] MEDS: CEFAZOLIN SODIUM 1 GM VIAL IVP SCH ×2 (06:30→09:25)
[2019-01-11] MEDS: INSULIN HUMULIN R 100 UNIT/ML 3ML SQ SCH ×4 (06:37→21:00)
--- NOTE | 2019-01-11 07:20 | NUR ---
O.R. NURSES WITH PATIENT. CARVEDILOL PO GIVEN. PATIENT TAKEN TO O.R. AT 0725.
[2019-01-11] MEDS: SODIUM CHLORIDE 0.9% 1000ML 1,000 ML IV SCH ×2 (07:36→14:06)
[2019-01-11] MEDS ORDERED: DEXAMETHASONE SOD PHOSPHATE 10MG/ML 1ML VIAL ONE (07:45)
[2019-01-11] MEDS ORDERED: NEOSTIGMINE 5MG/5ML SYR IV ONE (07:45)
[2019-01-11] MEDS ORDERED: MIDAZOLAM HCL 1 MG/ML 2ML VIAL ONE (07:45)
[2019-01-11] MEDS ORDERED: GLYCOPYRROLATE 1 MG/5 ML SYRINGE ONE (07:45)
[2019-01-11] MEDS ORDERED: ONDANSETRON HCL 4 MG/2 ML VIAL ONE (07:45)
[2019-01-11] MEDS ORDERED: LIDOCAINE PF 2% 5ML ABBOJECT ONE (07:45)
[2019-01-11] MEDS ORDERED: SUCCINYLCHOLINE 200MG/10ML SYR ONE (07:45)
[2019-01-11] MEDS ORDERED: PROPOFOL 10 MG/ML 20ML VIAL IV ONE (07:45)
[2019-01-11] MEDS ORDERED: ROCURONIUM 10MG/1ML SYR 10 MG/ML ML ONE (07:46)
[2019-01-11] MEDS ORDERED: EPHEDRINE SULFATE 50 MG/ML AMPULE ONE (08:23)
[2019-01-11] MEDS ORDERED: BACITRACIN 50,000 UNIT VIAL ONE (08:56)
[2019-01-11] MEDS ORDERED: FENTANYL CITRATE PF 50 MCG/1 ML 2ML VIAL ONE (09:12)
[2019-01-11] MEDS ORDERED: TRAMADOL HCL 50 MG TABLET PO PRN (10:30)
--- NOTE | 2019-01-11 10:59 | NUR ---
PEDAL PULSES BY DOPPLER. Addendum: 01/11/19 at 1140 by CARLA FINCH RN RN Amended: Links added.
[2019-01-11] MEDS ORDERED: MEPERIDINE-PF 25 MG/ML SYG ONE ×2 (11:10→11:26)
--- NOTE | 2019-01-11 11:30 | NUR ---
PEDAL PULSES BY DOPPLER Addendum: 01/11/19 at 1141 by CARLA FINCH RN RN Amended: Links added.
--- NOTE | 2019-01-11 13:30 | NUR ---
PATIENT ARRIVED FROM OR AT THIS TIME; RIGHT FEMORAL SITE AND RIGHT CALF SITE CLEAN, DRY AND INTACT; PEDAL PULSES HEARD BY DOPPLER. WILL CONTINUE TO MONITOR Addendum: 01/11/19 at 1527 by NILES HERNANDEZ RN RN PATIENT ARRIVED FROM OR AT THIS TIME; RIGHT FEMORAL SITE AND RIGHT CALF SITE CLEAN, DRY AND INTACT; PEDAL PULSES HEARD BY DOPPLER. AT BEDSIDE. WILL CONTINUE TO MONITOR
[2019-01-11] MEDS: VIT D PO SCH (14:00)
[2019-01-11] MEDS: ISOSORBIDE MONO 30MG TAB SR PO SCH (14:04)
[2019-01-11] MEDS: LEVOTHYROXINE 50 MCG TABLET PO SCH (14:04)
[2019-01-11] MEDS: PAROXETINE HCL 20 MG TABLET PO SCH (14:04)
[2019-01-11] MEDS: FAMOTIDINE 20MG TAB 20 MG TAB PO SCH (14:04)
[2019-01-11] MEDS: MAGNESIUM OXIDE 400 MG TABLET PO SCH (14:05)
[2019-01-11] MEDS: FUROSEMIDE 20 MG TABLET PO SCH (14:05)
[2019-01-11] MEDS: ALLOPURINOL 100 MG TABLET PO SCH (14:05)
[2019-01-11] MEDS: POTASSIUM CHLORIDE 20 MEQ ERTAB PO PRN ×3 (14:17→20:44)
--- NOTE | 2019-01-11 15:00 | NUR ---
DR GALE AT BEDSIDE AND CHANGED DRESSING TO RIGHT FOOT
--- NOTE | 2019-01-11 17:00 | NUR ---
A LINE TO LEFT RADIAL REMOVED; MANUAL PRESSURE HELD FOR 15 MIN; NO BLEEDING NOTED; WILL CONTINUE TO ASSESS
--- NOTE | 2019-01-11 18:20 | NUR ---
RIGHT FEMORAL, RIGHT CALF, AND LEFT RADIAL SITES ALL REMAIN DRY AND INTACT; DRESSING TO RIGHT FOOT ALSO DRY AND INTACT
[2019-01-11] MEDS: ZOLPIDEM TARTRATE 5 MG TAB PO SCH (20:43)
[2019-01-11] MEDS: TRAMADOL HCL 50 MG TABLET PO PRN (20:43)
[2019-01-12] VITALS (7 sets, daily range): BP systolic 91–186; BP diastolic 41–79
[2019-01-12] MEDS ORDERED: MORPHINE SULFATE 2 MG/ML 1ML SYG ONE (00:59)
[2019-01-12] MEDS ORDERED: MORPHINE SULFATE 2 MG/ML 1ML SYG IVP ONE (01:00)
[2019-01-12] MEDS: SODIUM CHLORIDE 0.9% 1000ML 1,000 ML IV SCH ×2 (02:27→13:53)
[2019-01-12] MEDS: METRONIDAZOLE 250 MG TABLET PO SCH ×3 (02:27→22:11)
[2019-01-12 03:43] LABS: HEMATOCRIT 22.4 % (36-48); MEAN CORPUSCULAR HEMOGLOBIN 32.2 pg (27.0-33.0); MEAN CORPUSCULAR HGB CONC 34.3 g/dL (32.0-36.0); MEAN CORPUSCULAR VOLUME 94.1 fL (79-99); PLATELET COUNT (AUTO) 203 K/uL (130-400); RED BLOOD CELL COUNT(AUTO) 2.39 MIL/uL (4.00-5.50); RED CELL DISTRIBUTION WIDTH 15.4 % (11.0-15.5); WHITE BLOOD COUNT (AUTO) 7.2 K/uL (4.8-10.8)
[2019-01-12 03:51] LABS: CREATININE 1.1 mg/dL (0.5-1.5); POTASSIUM 3.6 mmol/L (3.5-5.1)
[2019-01-12] MEDS: INSULIN HUMULIN R 100 UNIT/ML 3ML SQ SCH ×4 (05:20→21:00)
[2019-01-12] MEDS: FAMOTIDINE 20MG TAB 20 MG TAB PO SCH (08:12)
[2019-01-12] MEDS: PAROXETINE HCL 20 MG TABLET PO SCH (08:12)
[2019-01-12] MEDS: ALLOPURINOL 100 MG TABLET PO SCH (08:12)
[2019-01-12] MEDS: FUROSEMIDE 20 MG TABLET PO SCH (08:13)
[2019-01-12] MEDS: TRAMADOL HCL 50 MG TABLET PO PRN (08:13)
[2019-01-12] MEDS: MAGNESIUM OXIDE 400 MG TABLET PO SCH (08:14)
[2019-01-12] MEDS: GUAIFENESIN 600 MG TABLET.ER PO SCH ×2 (08:15→22:11)
[2019-01-12] MEDS: ISOSORBIDE MONO 30MG TAB SR PO SCH (08:15)
[2019-01-12] MEDS: CARVEDILOL 25 MG TABLET PO SCH ×2 (08:15→21:00)
[2019-01-12] MEDS: ZOSYN 3.375GM+NS 50ML 50 ML IV SCH ×2 (08:15→22:07)
[2019-01-12] MEDS: LEVOTHYROXINE 50 MCG TABLET PO SCH (08:17)
[2019-01-12] MEDS: VIT D PO SCH (08:27)
[2019-01-12] MEDS: ACETYLCYSTEINE 20% 200MG/ML 4ML VIAL PO SCH (09:00)
[2019-01-12] MEDS: HYDROCODONE/ACETAMINOPHEN 5/325 MG TAB PO PRN (09:45)
[2019-01-12] MEDS: HYDROMORPHONE 1 MG/1 ML AMP IVP PRN ×2 (12:56→18:50)
[2019-01-12] MEDS: ZOLPIDEM TARTRATE 5 MG TAB PO SCH (21:00)
[2019-01-12] MEDS: SERTRALINE HCL 50 MG TABLET PO SCH (21:00)
[2019-01-12] MEDS: GABAPENTIN 300 MG CAPSULE PO SCH (22:10)
[2019-01-12] MEDS: OXYBUTYNIN CHLORIDE 5 MG TABLET PO SCH (22:10)
[2019-01-12] MEDS: SIMVASTATIN 20 MG TABLET PO SCH (22:12)
[2019-01-12 23:07] LABS: HEMATOCRIT 27.4 % (36-48)
[2019-01-13] VITALS (19 sets, daily range): BP systolic 102–151; BP diastolic 45–71
--- NOTE | 2019-01-13 | NUR ---
PT HAS BEEN STABLE. VERIFIED PULSES WITH DOPPLER. MARKED TO AREA. PT HAS RIGHT FOOT WRAPPED IN [place]ER[place] AND WOUND CARE WAS PROVIDED DURING DAY. STATES SORENESS TO RIGHT LEG S/P FEM POP. ATTEMPTS TO GET OUT OF BED. BED ALARM IN PLACE.
[2019-01-13] MEDS: HYDROMORPHONE 1 MG/1 ML AMP IVP PRN ×2 (01:25→21:54)
[2019-01-13] MEDS: METRONIDAZOLE 250 MG TABLET PO SCH ×3 (03:37→17:56)
[2019-01-13 03:46] LABS: HEMATOCRIT 27.1 % (36-48); MEAN CORPUSCULAR HEMOGLOBIN 31.3 pg (27.0-33.0); MEAN CORPUSCULAR HGB CONC 33.4 g/dL (32.0-36.0); MEAN CORPUSCULAR VOLUME 93.7 fL (79-99); PLATELET COUNT (AUTO) 252 K/uL (130-400); RED CELL DISTRIBUTION WIDTH 15.4 % (11.0-15.5); WHITE BLOOD COUNT (AUTO) 9.3 K/uL (4.8-10.8)
[2019-01-13 04:07] LABS: CREATININE 1.4 mg/dL (0.5-1.5); MAGNESIUM 1.4 mg/dL (1.80-2.40); PHOSPHORUS 3.6 mg/dL (2.5-4.9); POTASSIUM 3.8 mmol/L (3.5-5.1)
[2019-01-13] MEDS: SODIUM CHLORIDE 0.9% 1000ML 1,000 ML IV SCH ×3 (05:00→09:53)
--- NOTE | 2019-01-13 06:00 | NUR ---
PT PICKED UP FOR PROCEDURE. PT STABLE. AT BEDSIDE.
[2019-01-13] MEDS: INSULIN HUMULIN R 100 UNIT/ML 3ML SQ SCH ×4 (06:16→20:47)
[2019-01-13] MEDS ORDERED: BUPIVACAINE/PF 0.5% 30ML VIAL ONE (06:25)
[2019-01-13] MEDS ORDERED: LIDOCAINE HCL 1% 20 ML VIAL ONE (06:25)
[2019-01-13] MEDS ORDERED: PROPOFOL 10 MG/ML 20ML VIAL IV ONE (06:41)
[2019-01-13] MEDS ORDERED: MORPHINE SULFATE 2 MG/ML 1ML SYG ONE (07:38)
[2019-01-13] MEDS: ZOSYN 3.375GM+NS 50ML 50 ML IV SCH ×2 (09:00→20:33)
[2019-01-13] MEDS: VIT D PO SCH (09:00)
[2019-01-13] MEDS ORDERED: MAGNESIUM 2GM PREMIX 50ML 50 ML IV PRN (12:00)
[2019-01-13] MEDS: ZINC SULFATE 220 CAPSULE PO SCH (12:00)
[2019-01-13] MEDS: PAROXETINE HCL 20 MG TABLET PO SCH (12:45)
[2019-01-13] MEDS: ISOSORBIDE MONO 30MG TAB SR PO SCH (12:45)
[2019-01-13] MEDS: FAMOTIDINE 20MG TAB 20 MG TAB PO SCH (12:46)
[2019-01-13] MEDS: LEVOTHYROXINE 50 MCG TABLET PO SCH (12:46)
[2019-01-13] MEDS: ALLOPURINOL 100 MG TABLET PO SCH (12:46)
[2019-01-13] MEDS: GUAIFENESIN 600 MG TABLET.ER PO SCH ×2 (12:46→20:34)
[2019-01-13] MEDS: MAGNESIUM OXIDE 400 MG TABLET PO SCH (12:46)
[2019-01-13] MEDS: FUROSEMIDE 20 MG TABLET PO SCH (12:46)
[2019-01-13] MEDS: CARVEDILOL 25 MG TABLET PO SCH ×2 (12:47→20:39)
[2019-01-13] MEDS: ASCORBIC ACID 500 MG TAB PO SCH (12:53)
[2019-01-13] MEDS: MULTIVITAMINS W-IRON 50 ML DROPS PO SCH (12:54)
[2019-01-13] MEDS: TRAMADOL HCL 50 MG TABLET PO PRN ×2 (13:21→17:24)
[2019-01-13 17:39] LABS: INR 1.1 (0.85-1.15); PROTHROMBIN TIME 11.5 SEC (9.6-11.6)
[2019-01-13] MEDS: OXYBUTYNIN CHLORIDE 5 MG TABLET PO SCH (20:34)
[2019-01-13] MEDS: SERTRALINE HCL 50 MG TABLET PO SCH (20:35)
[2019-01-13] MEDS: GABAPENTIN 300 MG CAPSULE PO SCH (20:35)
[2019-01-13] MEDS: ZOLPIDEM TARTRATE 5 MG TAB PO SCH (20:35)
[2019-01-13] MEDS: SIMVASTATIN 20 MG TABLET PO SCH (20:40)
[2019-01-14 03:07] VITALS: BP 114/54
[2019-01-14] MEDS: METRONIDAZOLE 250 MG TABLET PO SCH ×2 (03:17→12:06)
[2019-01-14 03:55] LABS: MEAN CORPUSCULAR HEMOGLOBIN 31.9 pg (27.0-33.0); MEAN CORPUSCULAR HGB CONC 34.1 g/dL (32.0-36.0); MEAN CORPUSCULAR VOLUME 93.7 fL (79-99); PLATELET COUNT (AUTO) 239 K/uL (130-400); RED BLOOD CELL COUNT(AUTO) 2.56 MIL/uL (4.00-5.50); RED CELL DISTRIBUTION WIDTH 15.4 % (11.0-15.5)
[2019-01-14 04:13] LABS: CREATININE 1.5 mg/dL (0.5-1.5); MAGNESIUM 1.7 mg/dL (1.80-2.40); PHOSPHORUS 4.3 mg/dL (2.5-4.9); POTASSIUM 3.5 mmol/L (3.5-5.1)
[2019-01-14] MEDS: SODIUM CHLORIDE 0.9% 1000ML 1,000 ML IV SCH ×3 (05:41→15:53)
[2019-01-14 05:43] LABS: % IRON SATURATION 10.6 % (22-44)
[2019-01-14] MEDS: TRAMADOL HCL 50 MG TABLET PO PRN ×2 (06:05→16:58)
[2019-01-14] MEDS: INSULIN HUMULIN R 100 UNIT/ML 3ML SQ SCH ×3 (06:32→16:30)
[2019-01-14 08:00] VITALS: BP 133/69
[2019-01-14] MEDS: VIT D PO SCH (09:00)
[2019-01-14] MEDS: ZINC SULFATE 220 CAPSULE PO SCH (09:00)
[2019-01-14] MEDS: LEVOTHYROXINE 50 MCG TABLET PO SCH (10:14)
[2019-01-14] MEDS: ALLOPURINOL 100 MG TABLET PO SCH (10:14)
[2019-01-14] MEDS: FUROSEMIDE 20 MG TABLET PO SCH (10:14)
[2019-01-14] MEDS: MAGNESIUM OXIDE 400 MG TABLET PO SCH (10:14)
[2019-01-14] MEDS: ASCORBIC ACID 500 MG TAB PO SCH (10:14)
[2019-01-14] MEDS: ISOSORBIDE MONO 30MG TAB SR PO SCH (10:14)
[2019-01-14] MEDS: MULTIVITAMINS W-IRON 50 ML DROPS PO SCH (10:14)
[2019-01-14] MEDS: GUAIFENESIN 600 MG TABLET.ER PO SCH (10:15)
[2019-01-14] MEDS: PAROXETINE HCL 20 MG TABLET PO SCH (10:15)
[2019-01-14] MEDS: ACETYLCYSTEINE 20% 200MG/ML 4ML VIAL PO SCH (10:15)
[2019-01-14] MEDS: CARVEDILOL 25 MG TABLET PO SCH (10:15)
[2019-01-14] MEDS: FAMOTIDINE 20MG TAB 20 MG TAB PO SCH (10:15)
[2019-01-14] MEDS: ZOSYN 3.375GM+NS 50ML 50 ML IV SCH (10:15)
--- NOTE | 2019-01-14 10:32 | NUR ---
DC Plan Discussed dcp with patient and at bedside. Vendor list provided. Both in agreement to [employer]. Patient signed AMARJIT and Choice Letter. Referral faxed w/ confirmation received. Addendum: 01/14/19 at 1046 by KENNEDY IVY CM Amended: Links added.
[2019-01-14] MEDS ORDERED: IRON SUCROSE COMPLEX 100 MG in SODIUM CHLORIDE 0.9% 50 ML IV SCH (11:30)
[2019-01-14] MEDS ORDERED: EPOETIN ALFA 10,000 UNIT/ML VIAL SQ SCH (11:30)
[2019-01-14] MEDS ORDERED: COMPOUND IV MISC 1 EACH IVSOLN MISC PRN (11:45)
[2019-01-14 12:00] VITALS: BP 152/73
[2019-01-14 16:00] VITALS: BP 147/70
--- NOTE | 2019-01-14 16:46 | NUR ---
SBAR REPORT HANDED TO MARIBEL LONG OF [facility].
--- NOTE | 2019-01-14 16:50 | NUR ---
[facility] CALLED. SPOKE WITH KARLENE.
== END 2019-01-14 18:06 | DRG 271 ==
LOC: EDH 09:25 → EDHIP 11:34 → 3BH 13:16 → 3AH 01-05 17:36 → 2DH 01-10 22:02 → 2BH 01-11 13:18 → 4CH 01-12 07:03 → 2DH 01-12 18:34
PROVIDERS: ADMIT Internal Medicine; ATTEND Internal Medicine
PROC: 0DJ08ZZ Inspection of Upper Intestinal Tract, Via Natural or Artificial Opening Endoscopic (ICD-10-PCS; 2019-01-08)
PROC: B41J1ZZ Fluoroscopy of Other Lower Arteries using Low Osmolar Contrast (ICD-10-PCS; 2019-01-08)
PROC: 0DBN8ZZ Excision of Sigmoid Colon, Via Natural or Artificial Opening Endoscopic (ICD-10-PCS; 2019-01-09)
PROC: 041 Lower Arteries, Bypass (ICD-10-PCS; principal; 2019-01-11 08:00)
PROC: 0Y6M0ZB Detachment at Right Foot, Partial 2nd Ray, Open Approach (ICD-10-PCS; 2019-01-13)
PROC: 0JBQ0ZZ Excision of Right Foot Subcutaneous Tissue and Fascia, Open Approach (ICD-10-PCS; 2019-01-13)
PROC: 0LQV0ZZ Repair Right Foot Tendon, Open Approach (ICD-10-PCS; 2019-01-13)
PROC: 0Y6P0Z3 Detachment at Right 1st Toe, Low, Open Approach (ICD-10-PCS; 2019-01-13 06:39)
PROC: 02HV33Z Insertion of Infusion Device into Superior Vena Cava, Percutaneous Approach (ICD-10-PCS; 2019-01-14)
DX: T82.898A Other specified complication of vascular prosthetic devices, implants and grafts, initial encounter (principal); E11.52 Type 2 diabetes mellitus with diabetic peripheral angiopathy with gangrene; I96 Gangrene, not elsewhere classified; E44.0 Moderate protein-calorie malnutrition; L03.115 Cellulitis of right lower limb; N18.4 Chronic kidney disease, stage 4 (severe); N17.9 Acute kidney failure, unspecified; J98.11 Atelectasis; D62 Acute posthemorrhagic anemia; E11.22 Type 2 diabetes mellitus with diabetic chronic kidney disease; I12.9 Hypertensive chronic kidney disease with stage 1 through stage 4 chronic kidney disease, or unspecified chronic kidney disease; E11.21 Type 2 diabetes mellitus with diabetic nephropathy; I25.10 Atherosclerotic heart disease of native coronary artery without angina pectoris; I25.5 Ischemic cardiomyopathy; D12.5 Benign neoplasm of sigmoid colon; K64.1 Second degree hemorrhoids; K21.0 Gastro-esophageal reflux disease with esophagitis; K29.00 Acute gastritis without bleeding; Z68.30 Body mass index [BMI] 30.0-30.9, adult; E11.621 Type 2 diabetes mellitus with foot ulcer; E78.5 Hyperlipidemia, unspecified; E83.42 Hypomagnesemia; E87.6 Hypokalemia; F32.9 Major depressive disorder, single episode, unspecified; G47.00 Insomnia, unspecified; Z95.1 Presence of aortocoronary bypass graft; G47.33 Obstructive sleep apnea (adult) (pediatric); G89.29 Other chronic pain; I70.203 Unspecified atherosclerosis of native arteries of extremities, bilateral legs; I71.9 Aortic aneurysm of unspecified site, without rupture; J44.9 Chronic obstructive pulmonary disease, unspecified; K63.5 Polyp of colon; K64.8 Other hemorrhoids; L97.519 Non-pressure chronic ulcer of other part of right foot with unspecified severity; Y83.2 Surgical operation with anastomosis, bypass or graft as the cause of abnormal reaction of the patient, or of later complication, without mention of misadventure at the time of the procedure; Z79.02 Long term (current) use of antithrombotics/antiplatelets; Z95.828 Presence of other vascular implants and grafts; Z95.810 Presence of automatic (implantable) cardiac defibrillator; Z88.8 Allergy status to other drugs, medicaments and biological substances; Z90.49 Acquired absence of other specified parts of digestive tract; Z90.11 Acquired absence of right breast and nipple; Z90.711 Acquired absence of uterus with remaining cervical stump; Z87.891 Personal history of nicotine dependence; Z87.01 Personal history of pneumonia (recurrent); Z86.718 Personal history of other venous thrombosis and embolism; Z85.3 Personal history of malignant neoplasm of breast; Y92.89 Other specified places as the place of occurrence of the external cause; Z83.3 Family history of diabetes mellitus
CPT/HCPCS: 36245; 36246; 36415; 43235; 45384; 71045; 73630; 75635; 75710; 80048; 80053; 81001; 82270; 82550; 82948; 83036; 83540; 83550; 83605; 83735; 83874; 84100; 84132; 84484; 84550; 85014; 85018; 85025; 85027; 85610; 85730; 86850; 86900; 86901; 86922; 87040; 87070; 87076; 87077; 87186; 87205; 87324; 87493; 88304; 88305; 88311; 93925; 97039; 99152; 99156; 99157; C1894; G0378; J0295; J0330; J0360; J0690; J0885; J1100; J1170; J1644; J1756; J1815; J2001; J2175; J2250; J2370; J2405; J2543; J2704; J2710; J3010; J3370; J3475; J3480; J3490; J7030; J7040; J7608; Q9967

== ENCOUNTER 2019-08-04 05:49 | Day surgery (SDC) | payer MEDICARE ==
[2019-08-02 08:45] VITALS: BP 100/50
[2019-08-02 08:56] LABS: CREATININE 1.9 mg/dL (0.5-1.5); POTASSIUM 4.3 mmol/L (3.5-5.1)
[2019-08-02 09:28] LABS: BASOPHILS % (AUTO) 0.5 % (0.0-5.0); HEMATOCRIT 33.6 % (36-48); LYMPHOCYTES % (AUTO) 20.9 % (21.0-51.0); MEAN CORPUSCULAR HEMOGLOBIN 30.8 pg (27.0-33.0); MEAN CORPUSCULAR HGB CONC 33.1 g/dL (32.0-36.0); MEAN CORPUSCULAR VOLUME 93.1 fL (79-99); MONOCYTES % (AUTO) 8.3 % (3.0-13.0); NEUTROPHILS % (AUTO) 64.3 % (40.0-77.0); PLATELET COUNT (AUTO) 202 K/uL (130-400); RED BLOOD CELL COUNT(AUTO) 3.61 MIL/uL (4.00-5.50); RED CELL DISTRIBUTION WIDTH 17.3 % (11.0-15.5); WHITE BLOOD COUNT (AUTO) 8.3 K/uL (4.8-10.8)
[2019-08-02 09:31] LABS: PARTIAL THROMBOPLASTIN TIME 25.6 SEC (26.3-35.5)
[2019-08-02 09:41] LABS: INR 1.02 (0.85-1.15); PROTHROMBIN TIME 10.7 SEC (9.6-11.6)
--- NOTE | 2019-08-03 13:29 | NUR ---
LAB ABNORMAL CREA REPORTED TO DR. MORRIS, MESSAGE LEFT WITH MIKA . AWAITING FOR FURTHER ORDERS
--- NOTE | 2019-08-03 14:53 | NUR ---
LABS RECEIVED CALL BACK PER DR. MORRIS, NO FURTHER ORDERS GIVEN
[~2019-08-04] VITALS: Ht 160 cm; Wt 65.1 kg
[2019-08-04] VITALS (10 sets, daily range): BP systolic 77–115; BP diastolic 39–55
[~2019-08-04 05:49] MED LIST changes: -ASCO10007 PO; -BENZ200C53 PO; -BETA1TAB18 PO; -BI EST VG; -CLOBETASOL CREAM TP; -CLOP75TA14 PO; -DOXY100C2 PO; -GABA-531 PO; -GABA600T10 PO; +LISI10TA7 PO; -MAGN250T10 PO; +MAGN400T40 PO; +OMEP40CA13 PO; -OMEP40CA37 PO; -OXYB5TAB10 PO; +OXYB5TAB27 PO; +PARO30TA60 PO; -PARO40TA72 PO; -SERT50TA PO; -TRAM50TA2; +TRAM50TA2 PO; -TYL3 PO; -ZOLP10TA6 PO
[2019-08-04] MEDS ORDERED: SODIUM CHLORIDE 0.9% 1000ML 1,000 ML IV ONE (06:18)
[2019-08-04] MEDS ORDERED: BUPIVACAINE/PF 0.25% 30ML VIAL IJ ONE (07:30)
[2019-08-04] MEDS ORDERED: MIDAZOLAM HCL 1 MG/ML 2ML VIAL ONE ×3 (07:31→08:47)
[2019-08-04] MEDS ORDERED: LIDOCAINE HCL 1% MDV 50ML VIAL ONE (07:31)
[2019-08-04] MEDS ORDERED: MEPERIDINE-PF 25 MG/ML SYG ONE ×3 (07:31→08:47)
[2019-08-04] MEDS ORDERED: CEFAZOLIN SODIUM 1 GM VIAL ONE (07:31)
[2019-08-04] MEDS ORDERED: DEXTROSE 50%-WATER 50 ML DISP.SYRIN IV ONE (07:49)
[2019-08-04] MEDS ORDERED: THROMBIN-JMI 5000 UNIT/VIAL TP ONE (08:42)
[2019-08-04] MEDS ORDERED: OCTYL 2-CYANOACRYLATE 1 EACH TP ONE (08:52)
[2019-08-04] MEDS ORDERED: ONDANSETRON HCL 4 MG/2 ML VIAL IV PRN (09:30)
[2019-08-04] MEDS ORDERED: DEXTROSE 50%-WATER 50 ML DISP.SYRIN IV PRN (09:30)
--- NOTE | 2019-08-04 09:45 | NUR ---
PT CAME FROM [facility] RN RECEIVED PATIENT. PER REPORT FROM NURSE DRESSING DRY AND INTACT AND PT. STABLE.
--- NOTE | 2019-08-04 10:00 | NUR ---
PT RESTING NO PAIN, DRESSING DRY AND INTACT PT B/P 88/41, DECREASES WHEN PT. SLEEPING. WILL CONTINUE TO MONITOR.
--- NOTE | 2019-08-04 10:15 | NUR ---
PT CONTINUES TO REST, PT BACK TO BASELINE ON B/P.
[2019-08-04] MEDS ORDERED: INSULIN HUMULIN R 100 UNIT/ML 3ML SQ SCH (11:30)
[2019-08-04] MEDS ORDERED: DOXYCYCLINE HYCLATE 100 MG TABLET PO SCH (14:00)
--- NOTE | 2019-08-04 14:00 | NUR ---
PRESSURE DRESSING REMOVED, SITE SOFT, NO BLEEDNG NOTED. PT WILL MONITOR AT HOME.
== END 2019-08-04 14:10 | disposition home or self-care (01) ==
LOC: DAH 05:49
PROVIDERS: ATTEND Internal Medicine Cardiovascular Disease
DX: Z45.02 Encounter for adjustment and management of automatic implantable cardiac defibrillator (principal); I42.9 Cardiomyopathy, unspecified; I25.10 Atherosclerotic heart disease of native coronary artery without angina pectoris; I10 Essential (primary) hypertension; E78.5 Hyperlipidemia, unspecified; G47.33 Obstructive sleep apnea (adult) (pediatric); I12.9 Hypertensive chronic kidney disease with stage 1 through stage 4 chronic kidney disease, or unspecified chronic kidney disease; N18.9 Chronic kidney disease, unspecified; Z88.8 Allergy status to other drugs, medicaments and biological substances; Z79.899 Other long term (current) drug therapy; Z79.4 Long term (current) use of insulin; Z87.891 Personal history of nicotine dependence; Z72.89 Other problems related to lifestyle; Z87.01 Personal history of pneumonia (recurrent); Z85.3 Personal history of malignant neoplasm of breast; Z89.429 Acquired absence of other toe(s), unspecified side; Z95.1 Presence of aortocoronary bypass graft; Z83.3 Family history of diabetes mellitus
CPT/HCPCS: 33263; 36415; 80048; 82948 ×3; 85025; 85610; 85730; 93005; A4215; A4216; A4221; A4222; A4223 ×3; A4606; A4663; C1721; J0690; J2175 ×3; J2250 ×3; J3490 ×3; J7030; J7070; 99156; 99157

== ENCOUNTER 2020-06-24 11:26 | Emergency (ER) | payer MEDICARE ==
[~2020-06-24 11:26] MED LIST changes: -ASPI-555 PO; +ASPI-556 PO; +BENZ-51 PO; +BETA1TAB18 PO; -CHOL100018 PO; -FERR-63 PO; +GABA300S PO; +IRON PO; -LISI10TA7 PO; +MULT1CAP32 PO
[2020-06-24] MEDS ORDERED: TETANUS/DIPHTHERIA TOXOID [ADULT] 0.5 ML VIAL IM ONE (11:46)
== END 2020-06-24 13:30 | disposition home or self-care (01) ==
LOC: EDH 11:26
DX: S80.01XA Contusion of right knee, initial encounter (principal); J44.9 Chronic obstructive pulmonary disease, unspecified; E11.9 Type 2 diabetes mellitus without complications; E78.5 Hyperlipidemia, unspecified; I10 Essential (primary) hypertension; Z90.49 Acquired absence of other specified parts of digestive tract; Z90.710 Acquired absence of both cervix and uterus; W18.39XA Other fall on same level, initial encounter; Y93.89 Activity, other specified; Y92.813 Airplane as the place of occurrence of the external cause; Y99.8 Other external cause status
CPT/HCPCS: 73562; 90471; 90714

== ENCOUNTER 2020-06-26 13:03 | Inpatient (IN) | payer MEDICARE ==
[~2020-06-26] VITALS: Ht 157.5 cm; Wt 78.2 kg
[2020-06-26] MEDS ORDERED: NOREPINEPHRINE 4MG/NS 250ML 250 ML IV ONE (13:12)
[2020-06-26 13:19] LABS: BASOPHILS % (AUTO) 0.4 % (0.0-5.0); EOSINOPHILS % (AUTO) 0.1 % (0.0-8.0); HEMATOCRIT 39.1 % (36-48); LYMPHOCYTES % (AUTO) 18.5 % (21.0-51.0); MEAN CORPUSCULAR HEMOGLOBIN 32.2 pg (27.0-33.0); MEAN CORPUSCULAR HGB CONC 32.5 g/dL (32.0-36.0); MEAN CORPUSCULAR VOLUME 99.2 fL (79-99); MONOCYTES % (AUTO) 7.5 % (3.0-13.0); NEUTROPHILS % (AUTO) 73.1 % (40.0-77.0); PLATELET COUNT (AUTO) 166 K/uL (130-400); RED BLOOD CELL COUNT(AUTO) 3.94 MIL/uL (4.00-5.50); RED CELL DISTRIBUTION WIDTH 15.2 % (11.0-15.5)
[2020-06-26] MEDS ORDERED: PROPOFOL 1000 MG/100 ML 100 ML IV ONE (13:19)
[2020-06-26 13:40] LABS: INR 1.49 (0.85-1.15); PROTHROMBIN TIME 15.8 SEC (9.6-11.6)
[2020-06-26 13:55] LABS: ALANINE AMINOTRANSFERASE 24 U/L (12-78); ALBUMIN 2.3 g/dL (3.5-5.0); ASPARTATE AMINOTRANSFERASE 63 U/L (10-37); BILIRUBIN,TOTAL 0.8 mg/dL (0.2-1.0); CARBON DIOXIDE 21 mmol/L (21-32); CHLORIDE 105 mmol/L (101-111); CREATINE KINASE, TOTAL 197 U/L (21-232); CREATININE 2.2 mg/dL (0.5-1.5); GLOMERULAR FILTR. RATE CALC 23 mL/min (>60); MYOGLOBIN 2083 ng/mL (10-92); TOTAL PROTEIN, SERUM 5.9 g/dL (6.0-8.3); TROPONIN I < 0.04 ng/mL (0.00-0.06); UREA NITROGEN, BLOOD 47 mg/dL (7-18)
[2020-06-26 14:02] LABS: APPEARANCE,URINE CLOUDY (CLEAR); BILIRUBIN,URINE NEGATIVE (NEGATIVE); COLOR,URINE YELLOW (YELLOW); GLUCOSE, URINE (UA) NEGATIVE (NEGATIVE); KETONES,URINE NEGATIVE (NEGATIVE); LEUKOCYTE ESTERASE ,URINE NEGATIVE (NEGATIVE); NITRATE,URINE NEGATIVE (NEGATIVE); OCCULT BLOOD,URINE TRACE-INTACT (NEGATIVE); PH,URINE 5.5 (5.0-8.0); PROTEIN,URINE >=300 mg/dL (NEGATIVE)
[2020-06-26 14:04] LABS: GLUCOSE,RANDOM 488 mg/dL (70-105); POTASSIUM 4.6 mmol/L (3.5-5.1); SODIUM SERUM 143 mmol/L (136-145)
[2020-06-26] MEDS ORDERED: DEXTROSE 5 %-0.45 % NACL 1,000 ML IV ONE ×2 (14:10→21:48)
[2020-06-26] MEDS ORDERED: ZOSYN 3.375GM+NS 50ML 50 ML IV ONE (14:10)
[2020-06-26] MEDS ORDERED: MAGNESIUM 2GM PREMIX 50ML 50 ML IV ONE (14:24)
[2020-06-26 14:25] LABS: BACTERIA,URINE Rare /HPF (None Seen); RBC,URINE 26-50 /HPF (0-1); SQUAMOUS EPITHELIAL CELL,UR Rare /HPF (0-2); WBC,URINE 0-1 /HPF (0-1)
[2020-06-26 14:41] LABS: ABG BASE EXCESS -11.1 mmol/L (-2.0-3.0); ABG HCO3 12.8 mmol/L (21.0-28.0); ABG OXYGEN SATURATION 99.2 % (95.0-99.0); ABG PCO2 25 mmHg (32-45)
[2020-06-26] MEDS ORDERED: AMIODARONE HCL 900 MG in DEXTROSE 5%-WATER 500 ML IV NR (15:56)
[2020-06-26] MEDS ORDERED: AMIODARONE HCL 360 MG in DEXTROSE 5%-WATER 200 ML IV SCH (16:00)
[2020-06-26] MEDS ORDERED: ONDANSETRON HCL 4 MG/2 ML VIAL IVP PRN (19:15)
[2020-06-26] MEDS: ZOSYN 3.375GM+NS 50ML 50 ML IV SCH (19:15)
[2020-06-26] MEDS: DEXTROSE 5 %-0.45 % NACL 1,000 ML IV SCH (19:15)
[2020-06-26] MEDS ORDERED: MAGNESIUM 2GM PREMIX 50ML 50 ML IV PRN (19:15)
[2020-06-26 23:00] VITALS: BP 133/65
[2020-06-27] VITALS (24 sets, daily range): BP systolic 116–150; BP diastolic 54–93
[2020-06-27] MEDS: AMIODARONE HCL 450 MG in DEXTROSE 5%-WATER 250 ML IV SCH ×2 (00:02→15:09)
[2020-06-27] MEDS ORDERED: PROPOFOL 1000 MG/100 ML 100 ML IV ONE (02:47)
[2020-06-27] MEDS: ZOSYN 3.375GM+NS 50ML 50 ML IV SCH ×3 (03:26→18:40)
[2020-06-27] MEDS: DEXTROSE 5 %-0.45 % NACL 1,000 ML IV SCH (03:26)
[2020-06-27 03:35] LABS: BASOPHILS % (AUTO) 0.3 % (0.0-5.0); EOSINOPHILS % (AUTO) 0.1 % (0.0-8.0); HEMATOCRIT 37.6 % (36-48); LYMPHOCYTES % (AUTO) 8.6 % (21.0-51.0); MEAN CORPUSCULAR HEMOGLOBIN 31.6 pg (27.0-33.0); MEAN CORPUSCULAR VOLUME 95.9 fL (79-99); MONOCYTES % (AUTO) 10.4 % (3.0-13.0); NEUTROPHILS % (AUTO) 80.1 % (40.0-77.0); NUCLEATED RED BLOOD CELLS 0.2 % (0.0-0.19); PLATELET COUNT (AUTO) 160 K/uL (130-400); RED BLOOD CELL COUNT(AUTO) 3.92 MIL/uL (4.00-5.50); RED CELL DISTRIBUTION WIDTH 14.9 % (11.0-15.5); WHITE BLOOD COUNT (AUTO) 19.9 K/uL (4.8-10.8)
[2020-06-27 03:42] LABS: HEMOGLOBIN A1C 6.5 % (4.0-6.0)
[2020-06-27 04:02] LABS: ALBUMIN 2.5 g/dL (3.5-5.0); BILIRUBIN,DIRECT 0.4 mg/dL (0.0-0.3); BILIRUBIN,TOTAL 0.9 mg/dL (0.2-1.0); CREATININE 2.1 mg/dL (0.5-1.5); MAGNESIUM 1.9 mg/dL (1.80-2.40); TOTAL PROTEIN, SERUM 6.2 g/dL (6.0-8.3)
[2020-06-27] MEDS ORDERED: VANCOMYCIN PROTOCOL PER PHARMACY IV SCH (05:45)
[2020-06-27] MEDS ORDERED: COMPOUND IV REFRIGERATED 1 EACH IVSOLN MISC PRN (06:30)
[2020-06-27] MEDS ORDERED: VANCOMYCIN 2 GM in SODIUM CHLORIDE 0.9% 500ML 500 ML IV SCH (06:30)
--- NOTE | 2020-06-27 07:15 | NUR ---
ADMITTED WITH HYPOGLYCEMIC COMA Addendum: 06/27/20 at 1809 by NILES HERNANDEZ RN RN Amended: Links added.
[2020-06-27 07:33] LABS: POTASSIUM 4.3 mmol/L (3.5-5.1)
[2020-06-27] MEDS: ENOXAPARIN SODIUM 30 MG/0.3 ML SQ SCH (09:44)
[2020-06-27] MEDS: VANCOMYCIN 1.25 GM in SODIUM CHLORIDE 0.9% 250 ML IV SCH (09:44)
[2020-06-27] MEDS ORDERED: LACTATED RINGERS 1000ML 1,000 ML IV ONE (11:54)
[2020-06-27] MEDS ORDERED: GLUCAGON 1MG KIT 1 MG ML IM PRN (12:30)
[2020-06-27] MEDS ORDERED: DEXTROSE 50%-WATER 50 ML DISP.SYRIN IV PRN (12:30)
--- NOTE | 2020-06-27 13:02 | NUR ---
DC PLAN PATIENT LIVES WITH SPOUSE. INDEPENDENT ABLE TO PERFORM ADL'S. PATIENT HAS NO SERVICES. USES A CANE AND CPAP. FEELS SAFE TO RETURN HOME. Addendum: 06/27/20 at 1304 by ALANNA LEE RN CM Amended: Links added.
[2020-06-27] MEDS: LACTATED RINGERS 1000ML 1,000 ML IV SCH (13:19)
--- NOTE | 2020-06-27 14:53 | NUR ---
RD NOTIFICATION Pt intubated, hypoglycemia with Coma, metabolic encephalopathy. Tube feeding order in place. Recommend low Vital AF 1.2 initiated at 20mls/hr. Recommend low goal rate of 35mls/hr for monitoring secondary to altered renal labs and elevated TCK levels. Recommend Free H2O flushes of 100mls Q6hrs. Recommendations pending Fax to 2D secondary to fax delay. RN to be notified once Fax is sent. RD to continue to monitor daily.
--- NOTE | 2020-06-27 15:00 | NUR ---
[employer] ICD INTERROGATION COMPLETED BY [employer]. STRIP READING IN PATIENT CHART. DR PLUNKETT GIVEN REPORT OVER PHONE BY [employer]. NO FURTHER ORDERS GIVEN AT THIS TIME
--- NOTE | 2020-06-27 15:55 | NUR ---
TELENEURO CONSULT COMPLETED. MD TO PLACE RECOMMENDATIONS.
[2020-06-27] MEDS: INSULIN LISPRO 100 UNIT/ML 3ML SQ SCH ×2 (16:30→21:00)
[2020-06-27] MEDS: DOCUSATE NA 100MG/10ML UDCUP PO SCH (21:44)
[2020-06-27] MEDS: DEXMEDETOMIDINE HCL 200 MCG in SODIUM CHLORIDE 0.9% 50 ML IV SCH (21:45)
[2020-06-28] VITALS (24 sets, daily range): BP systolic 100–132; BP diastolic 50–70
[2020-06-28] MEDS ORDERED: DIPH1TAB PO (00:14)
[2020-06-28] MEDS ORDERED: PARO30TA76 PO (00:14)
[2020-06-28] MEDS ORDERED: CARV25TA77 PO (00:14)
[2020-06-28] MEDS ORDERED: LEVO50TA4 PO (00:14)
[2020-06-28] MEDS ORDERED: OXYB5TAB27 PO (00:14)
[2020-06-28] MEDS ORDERED: ISOS30TA11 PO (00:14)
[2020-06-28] MEDS ORDERED: OMEP40CA13 PO (00:14)
[2020-06-28] MEDS ORDERED: TRAM50TA4 PO (00:14)
[2020-06-28] MEDS ORDERED: ALLO100T PO (00:14)
[2020-06-28] MEDS ORDERED: LISI10TA7 PO (00:14)
[2020-06-28] MEDS ORDERED: BENZ-51 PO (00:17)
[2020-06-28] MEDS ORDERED: ALLO100T50 PO (00:17)
[2020-06-28 03:35] LABS: BASOPHILS % (AUTO) 0.3 % (0.0-5.0); EOSINOPHILS % (AUTO) 0.9 % (0.0-8.0); LYMPHOCYTES % (AUTO) 10.9 % (21.0-51.0); MEAN CORPUSCULAR HGB CONC 33.9 g/dL (32.0-36.0); MEAN CORPUSCULAR VOLUME 94.3 fL (79-99); MONOCYTES % (AUTO) 7.9 % (3.0-13.0); NEUTROPHILS % (AUTO) 79.7 % (40.0-77.0); NUCLEATED RED BLOOD CELLS 0.2 % (0.0-0.19); PLATELET COUNT (AUTO) 145 K/uL (130-400); RED CELL DISTRIBUTION WIDTH 14.8 % (11.0-15.5)
[2020-06-28 03:51] LABS: ALBUMIN 2.1 g/dL (3.5-5.0); BILIRUBIN,TOTAL 0.9 mg/dL (0.2-1.0); CREATININE 2.3 mg/dL (0.5-1.5); MAGNESIUM 1.6 mg/dL (1.80-2.40); PHOSPHORUS 3.5 mg/dL (2.5-4.9); POTASSIUM 3.9 mmol/L (3.5-5.1); TOTAL PROTEIN, SERUM 5.3 g/dL (6.0-8.3); URIC ACID 6.7 mg/dL (2.6-7.2)
[2020-06-28 04:12] LABS: B-TYPE NATRIURETIC PEPTIDE 636 pg/mL (0-100)
[2020-06-28] MEDS: ZOSYN 3.375GM+NS 50ML 50 ML IV SCH ×3 (04:56→18:44)
[2020-06-28] MEDS: LACTATED RINGERS 1000ML 1,000 ML IV SCH ×2 (04:58→15:23)
[2020-06-28] MEDS: DEXMEDETOMIDINE HCL 200 MCG in SODIUM CHLORIDE 0.9% 50 ML IV SCH ×2 (05:37→18:49)
[2020-06-28] MEDS: INSULIN LISPRO 100 UNIT/ML 3ML SQ SCH ×4 (06:44→21:00)
[2020-06-28] MEDS: AMIODARONE HCL 450 MG in DEXTROSE 5%-WATER 250 ML IV SCH (07:47)
[2020-06-28] MEDS: ASPIRIN 81MG TAB.CHEW PO SCH (08:03)
[2020-06-28] MEDS: FAMOTIDINE/PF 20 MG/2 ML VIAL IV SCH (08:04)
[2020-06-28] MEDS: DOCUSATE NA 100MG/10ML UDCUP PO SCH ×2 (08:04→21:26)
[2020-06-28] MEDS: ENOXAPARIN SODIUM 30 MG/0.3 ML SQ SCH (08:04)
[2020-06-28 08:35] LABS: ABG BASE EXCESS -6.4 mmol/L (-2.0-3.0); ABG HCO3 16.7 mmol/L (21.0-28.0); ABG OXYGEN SATURATION 98.7 % (95.0-99.0); ABG PCO2 28 mmHg (32-45)
[2020-06-28 09:06] LABS: APPEARANCE,URINE CLOUDY (CLEAR); BILIRUBIN,URINE NEGATIVE (NEGATIVE); COLOR,URINE YELLOW (YELLOW); GLUCOSE, URINE (UA) NEGATIVE (NEGATIVE); KETONES,URINE NEGATIVE (NEGATIVE); LEUKOCYTE ESTERASE ,URINE LARGE (NEGATIVE); NITRATE,URINE NEGATIVE (NEGATIVE); OCCULT BLOOD,URINE LARGE (NEGATIVE); PH,URINE 5.5 (5.0-8.0); PROTEIN,URINE 100 mg/dL (NEGATIVE)
[2020-06-28 09:17] LABS: BACTERIA,URINE Few /HPF (None Seen); SQUAMOUS EPITHELIAL CELL,UR Few /HPF (0-2); WBC,URINE 26-50 /HPF (0-1)
[2020-06-28] MEDS ORDERED: PHARMACY COMMUNICATION MISC SCH ×2 (09:45→17:15)
[2020-06-28] MEDS ORDERED: COMPOUND IV MISC 1 EACH IVSOLN MISC PRN (10:00)
[2020-06-28] MEDS: LEVETIRACETAM 250 MG in SODIUM CHLORIDE 0.9% 100 ML IV SCH ×2 (10:51→21:29)
--- NOTE | 2020-06-28 14:53 | NUR ---
RD UPDATE Pt continues to intubated, mechanically ventilated, weaning sedation. Tube feeding recommendations received on unit this AM. Recommend goal of Vital AF 1.2 @35mls due to altered renal labs and TCK levels. Additional monitored labs: Cr 2.3, GFR 22, BG 157, BNP 636, Alb 2.1, Mg 1.60 RD to continue to monitor. Please notify as additional nutrition concerns arise. Thank you.
[2020-06-28] MEDS: ALBUTEROL SULFATE 0.083% 2.5 MG/3 ML INH IH SCH (19:18)
[2020-06-28] MEDS: ACETYLCYSTEINE 10% 100MG/ML 4ML VIAL IH SCH (19:19)
[2020-06-28] MEDS ORDERED: DEXMEDETOMIDINE HCL 400 MCG in SODIUM CHLORIDE 0.9% 100 ML IV SCH (19:30)
[2020-06-28] MEDS ORDERED: CARVEDILOL 25 MG TABLET PO SCH (21:00)
[2020-06-29] VITALS (21 sets, daily range): BP systolic 105–141; BP diastolic 62–79
[2020-06-29] MEDS: ALBUTEROL SULFATE 0.083% 2.5 MG/3 ML INH IH SCH ×4 (00:23→19:23)
[2020-06-29] MEDS: ACETYLCYSTEINE 10% 100MG/ML 4ML VIAL IH SCH ×4 (00:23→19:23)
[2020-06-29] MEDS: ZOSYN 3.375GM+NS 50ML 50 ML IV SCH ×3 (03:39→19:15)
[2020-06-29 03:48] LABS: HEMATOCRIT 34.7 % (36-48); MEAN CORPUSCULAR HEMOGLOBIN 32.5 pg (27.0-33.0); MEAN CORPUSCULAR VOLUME 95.6 fL (79-99); RED BLOOD CELL COUNT(AUTO) 3.63 MIL/uL (4.00-5.50); RED CELL DISTRIBUTION WIDTH 15.2 % (11.0-15.5); WHITE BLOOD COUNT (AUTO) 9.4 K/uL (4.8-10.8)
[2020-06-29 03:58] LABS: CREATININE 2.4 mg/dL (0.5-1.5); POTASSIUM 3.9 mmol/L (3.5-5.1)
[2020-06-29] MEDS: LACTATED RINGERS 1000ML 1,000 ML IV SCH ×2 (04:30→10:20)
[2020-06-29] MEDS: VANCOMYCIN 1.25 GM in SODIUM CHLORIDE 0.9% 250 ML IV SCH (06:36)
[2020-06-29] MEDS: INSULIN LISPRO 100 UNIT/ML 3ML SQ SCH ×4 (07:30→21:00)
[2020-06-29] MEDS: FAMOTIDINE/PF 20 MG/2 ML VIAL IV SCH (08:51)
[2020-06-29] MEDS: ASPIRIN 81MG TAB.CHEW PO SCH (08:51)
[2020-06-29] MEDS: ENOXAPARIN SODIUM 30 MG/0.3 ML SQ SCH (08:52)
[2020-06-29] MEDS: DOCUSATE NA 100MG/10ML UDCUP PO SCH ×2 (09:00→21:32)
[2020-06-29 09:21] LABS: ALBUMIN 2.1 g/dL (3.5-5.0); BILIRUBIN,TOTAL 1.1 mg/dL (0.2-1.0); CREATININE 2.3 mg/dL (0.5-1.5); POTASSIUM 4.1 mmol/L (3.5-5.1); TOTAL PROTEIN, SERUM 5.6 g/dL (6.0-8.3)
[2020-06-29] MEDS: LEVETIRACETAM 250 MG in SODIUM CHLORIDE 0.9% 100 ML IV SCH ×2 (10:15→21:37)
[2020-06-29] MEDS: CARVEDILOL 6.25 MG TABLET PO SCH ×2 (10:22→21:33)
[2020-06-29] MEDS ORDERED: PHARMACY COMMUNICATION MISC SCH (12:00)
[2020-06-29] MEDS ORDERED: SODIUM CHLORIDE 0.9% IV SCH ×2 (12:00)
[2020-06-29] MEDS ORDERED: ACYCLOVIR SODIUM IV SCH ×2 (12:00)
--- NOTE | 2020-06-29 12:22 | NUR ---
RD UPDATE Vital AF 1.2 @30mls this AM. Pt tolerating with no report of GI distress. LBM 06/28, Reymundo Minaya. Monitored labs: BUN 49, Cr 2.3, GFR 22, BG 157, Mg 1.60, BNP 636, Alb 2.1 Jevity received yesterday as per EMR; RD confirmed with RN that current Vital AF 1.[address] to continue to monitor. Please notify as additional nutrition concerns arise. Thank you.
--- NOTE | 2020-06-29 12:30 | NUR ---
URINE SPECIMEN Notified JOAN GOMEZ of salmonella to the urine. MD at bedside.
[2020-06-29 13:20] LABS: ABG BASE EXCESS -6.2 mmol/L (-2.0-3.0); ABG OXYGEN SATURATION 97.7 % (95.0-99.0); ABG PCO2 32 mmHg (32-45)
--- NOTE | 2020-06-29 14:34 | NUR ---
MICHELE YUEN. ORDER RECEIVED, Pt CURRENTLY INTUBATED. PLAN IS TO EXTUBATED TODAY. RECOMMEND SWALLOW EVALUATION 24 HOURS POST EXTUBATION. Addendum: 06/29/20 at 1436 by ASHANTI GAXIOLA, [facility] Amended: Links added.
--- NOTE | 2020-06-29 14:50 | NUR ---
EXTUBATION Pt extubated. Placed on nasal cannula at 4 liters. 02 saturation = 100%
[2020-06-30] VITALS (22 sets, daily range): BP systolic 100–152; BP diastolic 34–88
[2020-06-30] MEDS: ALBUTEROL SULFATE 0.083% 2.5 MG/3 ML INH IH SCH ×2 (00:21→06:40)
[2020-06-30] MEDS: ACETYLCYSTEINE 10% 100MG/ML 4ML VIAL IH SCH ×2 (00:21→06:41)
[2020-06-30 03:31] LABS: BASOPHILS % (AUTO) 0.4 % (0.0-5.0); EOSINOPHILS % (AUTO) 3.4 % (0.0-8.0); HEMATOCRIT 36.1 % (36-48); LYMPHOCYTES % (AUTO) 6.1 % (21.0-51.0); MEAN CORPUSCULAR HEMOGLOBIN 32.4 pg (27.0-33.0); MEAN CORPUSCULAR HGB CONC 34.1 g/dL (32.0-36.0); NEUTROPHILS % (AUTO) 83.7 % (40.0-77.0); NUCLEATED RED BLOOD CELLS 0.2 % (0.0-0.19); PLATELET COUNT (AUTO) 167 K/uL (130-400); RED CELL DISTRIBUTION WIDTH 15.7 % (11.0-15.5); WHITE BLOOD COUNT (AUTO) 11.3 K/uL (4.8-10.8)
[2020-06-30 03:42] LABS: CREATININE 2.3 mg/dL (0.5-1.5); PHOSPHORUS 3.5 mg/dL (2.5-4.9); POTASSIUM 4.1 mmol/L (3.5-5.1)
[2020-06-30] MEDS: ZOSYN 3.375GM+NS 50ML 50 ML IV SCH (04:11)
[2020-06-30] MEDS: INSULIN LISPRO 100 UNIT/ML 3ML SQ SCH ×4 (06:45→20:47)
[2020-06-30] MEDS: ENOXAPARIN SODIUM 30 MG/0.3 ML SQ SCH (08:59)
[2020-06-30] MEDS ORDERED: ACYCLOVIR SODIUM 1000 MG VIAL IV SCH (09:00)
[2020-06-30] MEDS: FAMOTIDINE/PF 20 MG/2 ML VIAL IV SCH (09:00)
[2020-06-30] MEDS: CARVEDILOL 6.25 MG TABLET PO SCH ×2 (09:00→21:00)
[2020-06-30] MEDS: DOCUSATE NA 100MG/10ML UDCUP PO SCH ×2 (09:00→20:45)
[2020-06-30] MEDS: ASPIRIN 81MG TAB.CHEW PO SCH (09:01)
[2020-06-30] MEDS: LEVETIRACETAM 250 MG in SODIUM CHLORIDE 0.9% 100 ML IV SCH ×2 (09:03→20:45)
--- NOTE | 2020-06-30 14:00 | NUR ---
MRI SCREENING Dr Preciado at bedside. intends to rule out a stroke. wanted to verify if patient's implanted defibrillator is MRI compatible. [employer] solar sales representative "Gaurav" contacted. Online Marketing Coordinator states he'll be at bedside later this afternoon. Stockroom Selector Dr Kylah Mar contacted. states he gives his consent for MRI to be done if [employer] sales representative determines patient's defibrillator is MRI compactible.
--- NOTE | 2020-06-30 17:13 | NUR ---
MRI SCREENING COMPLETE [employer] sales representative consultant "Gaurav" at bedside. Implanted defibrillator was checked. personnel states that patient's leads are from the year 2010 and are not approved/compatible with MRI.
[2020-07-01] VITALS (15 sets, daily range): BP systolic 119–190; BP diastolic 48–104
[2020-07-01 03:54] LABS: BASOPHILS % (AUTO) 0.5 % (0.0-5.0); EOSINOPHILS % (AUTO) 2.2 % (0.0-8.0); HEMATOCRIT 38.2 % (36-48); LYMPHOCYTES % (AUTO) 11.3 % (21.0-51.0); MEAN CORPUSCULAR HEMOGLOBIN 31.9 pg (27.0-33.0); MEAN CORPUSCULAR HGB CONC 33.2 g/dL (32.0-36.0); NEUTROPHILS % (AUTO) 77.7 % (40.0-77.0); NUCLEATED RED BLOOD CELLS 0.3 % (0.0-0.19); PLATELET COUNT (AUTO) 159 K/uL (130-400); RED BLOOD CELL COUNT(AUTO) 3.98 MIL/uL (4.00-5.50); WHITE BLOOD COUNT (AUTO) 8.7 K/uL (4.8-10.8)
[2020-07-01 04:05] LABS: ALBUMIN 2.4 g/dL (3.5-5.0); BILIRUBIN,TOTAL 1.3 mg/dL (0.2-1.0); CREATININE 2.4 mg/dL (0.5-1.5); POTASSIUM 3.7 mmol/L (3.5-5.1); TOTAL PROTEIN, SERUM 6.1 g/dL (6.0-8.3)
[2020-07-01] MEDS ORDERED: DEXTROSE 5%-WATER 1,000 ML IV ONE (05:10)
[2020-07-01] MEDS ORDERED: DEXTROSE 5 %-0.45 % NACL 1,000 ML IV ONE (05:15)
[2020-07-01] MEDS ORDERED: SODIUM CHLORIDE 0.9% 100 ML IV ONE (05:15)
[2020-07-01] MEDS: INSULIN LISPRO 100 UNIT/ML 3ML SQ SCH ×4 (07:30→21:00)
[2020-07-01] MEDS: DOCUSATE NA 100MG/10ML UDCUP PO SCH ×2 (09:00→19:28)
[2020-07-01] MEDS: ASPIRIN 81MG TAB.CHEW PO SCH (09:46)
[2020-07-01] MEDS: ENOXAPARIN SODIUM 30 MG/0.3 ML SQ SCH (09:46)
[2020-07-01] MEDS: FAMOTIDINE/PF 20 MG/2 ML VIAL IV SCH (09:47)
[2020-07-01] MEDS: CARVEDILOL 6.25 MG TABLET PO SCH ×2 (09:47→19:29)
[2020-07-01] MEDS: LEVETIRACETAM 250 MG in SODIUM CHLORIDE 0.9% 100 ML IV SCH ×2 (10:42→19:29)
--- NOTE | 2020-07-01 16:00 | NUR ---
DYSPHAGIA EVAL COMPLETED. +S/S OF ASPIRATION WITH HONEY THICK LIQUIDS. RECOMMEND NPO, SHORT TERM ALTERNATE MEANS OF NUTRITION/HYDRATION. RE-EVAL WITHIN A WEEK OR WHEN PATIENT'S STATUS IMPROVES. RESULTS AND RECOMMENDATIONS REVIEWED WITH NURSE MORALES. Addendum: 07/01/[address] SETPHENIE REED Amended: Links added.
[2020-07-01] MEDS: FUROSEMIDE 20 MG TABLET NG SCH (17:26)
--- NOTE | 2020-07-01 20:44 | NUR ---
MD VELASQUEZ AT THE BEDSIDE TO ASSESS PATIENT. MD ORDERS BREATHING TREATMENTS , MORNING LABS , AND CHEST XRAY FOR PATIENT.
[2020-07-01] MEDS: ALBUTEROL SULFATE 0.042% 1.25 MG/3 ML INH IH SCH (22:28)
[2020-07-02] VITALS (19 sets, daily range): BP systolic 121–173; BP diastolic 52–105
[2020-07-02] MEDS ORDERED: ACETAMINOPHEN ELIXIR 650 MG/20.3 ML UDCUP PEG PRN (00:30)
[2020-07-02] MEDS: ALBUTEROL SULFATE 0.042% 1.25 MG/3 ML INH IH SCH ×6 (02:14→22:22)
[2020-07-02 03:52] LABS: BASOPHILS % (AUTO) 0.4 % (0.0-5.0); EOSINOPHILS % (AUTO) 2.8 % (0.0-8.0); HEMATOCRIT 37.7 % (36-48); LYMPHOCYTES % (AUTO) 14.1 % (21.0-51.0); MEAN CORPUSCULAR HEMOGLOBIN 31.9 pg (27.0-33.0); MEAN CORPUSCULAR HGB CONC 32.9 g/dL (32.0-36.0); MEAN CORPUSCULAR VOLUME 96.9 fL (79-99); MONOCYTES % (AUTO) 11.9 % (3.0-13.0); NEUTROPHILS % (AUTO) 70.5 % (40.0-77.0); NUCLEATED RED BLOOD CELLS 0.5 % (0.0-0.19); PLATELET COUNT (AUTO) 176 K/uL (130-400); RED BLOOD CELL COUNT(AUTO) 3.89 MIL/uL (4.00-5.50); RED CELL DISTRIBUTION WIDTH 16.7 % (11.0-15.5); WHITE BLOOD COUNT (AUTO) 7.4 K/uL (4.8-10.8)
[2020-07-02 04:01] LABS: CREATININE 2.4 mg/dL (0.5-1.5); POTASSIUM 4.4 mmol/L (3.5-5.1)
[2020-07-02] MEDS: INSULIN LISPRO 100 UNIT/ML 3ML SQ SCH ×4 (07:00→20:28)
[2020-07-02] MEDS: ENOXAPARIN SODIUM 30 MG/0.3 ML SQ SCH (08:27)
[2020-07-02] MEDS: CARVEDILOL 6.25 MG TABLET PO SCH ×2 (08:27→20:31)
[2020-07-02] MEDS: ASPIRIN 81MG TAB.CHEW PO SCH (08:28)
[2020-07-02] MEDS: FUROSEMIDE 20 MG TABLET NG SCH (08:28)
[2020-07-02] MEDS: LEVETIRACETAM 250 MG in SODIUM CHLORIDE 0.9% 100 ML IV SCH (08:28)
[2020-07-02] MEDS: FAMOTIDINE/PF 20 MG/2 ML VIAL IV SCH (08:29)
[2020-07-02] MEDS: DOCUSATE NA 100MG/10ML UDCUP PO SCH ×2 (08:29→20:27)
--- NOTE | 2020-07-02 13:06 | NUR ---
FOLLOW UP COMPLETED. Pt NOT ABLE TO FOLLOW COMMANDS AT THIS TIME. Pt AGITATED. RE-EVAL TO BE COMPLETED WHEN CURRENT STATUS IMPROVES. Addendum: 07/02/20 at 1308 by ASHANTI GAXIOLA, SPT ST Amended: Links added.
[2020-07-02] MEDS: LEVETIRACETAM 100 MG/ML 5 ML UDCUP NG SCH (20:30)
[2020-07-03] VITALS (22 sets, daily range): BP systolic 115–177; BP diastolic 39–100
[2020-07-03] MEDS: ALBUTEROL SULFATE 0.042% 1.25 MG/3 ML INH IH SCH ×6 (02:27→21:07)
[2020-07-03 03:36] LABS: BASOPHILS % (AUTO) 0.4 % (0.0-5.0); EOSINOPHILS % (AUTO) 2.6 % (0.0-8.0); HEMATOCRIT 37.2 % (36-48); LYMPHOCYTES % (AUTO) 14.3 % (21.0-51.0); MEAN CORPUSCULAR HGB CONC 33.3 g/dL (32.0-36.0); MEAN CORPUSCULAR VOLUME 95.9 fL (79-99); NEUTROPHILS % (AUTO) 71.2 % (40.0-77.0); NUCLEATED RED BLOOD CELLS 0.5 % (0.0-0.19); PLATELET COUNT (AUTO) 186 K/uL (130-400); RED BLOOD CELL COUNT(AUTO) 3.88 MIL/uL (4.00-5.50); WHITE BLOOD COUNT (AUTO) 9.1 K/uL (4.8-10.8)
[2020-07-03 03:53] LABS: CREATININE 2.5 mg/dL (0.5-1.5); POTASSIUM 3.9 mmol/L (3.5-5.1)
[2020-07-03] MEDS: INSULIN LISPRO 100 UNIT/ML 3ML SQ SCH ×3 (07:30→16:30)
[2020-07-03] MEDS: FAMOTIDINE/PF 20 MG/2 ML VIAL IV SCH (08:22)
[2020-07-03] MEDS: FUROSEMIDE 20 MG TABLET NG SCH (08:22)
[2020-07-03] MEDS: ASPIRIN 81MG TAB.CHEW PO SCH (08:22)
[2020-07-03] MEDS: LEVETIRACETAM 100 MG/ML 5 ML UDCUP NG SCH ×2 (08:22→21:26)
[2020-07-03] MEDS: ENOXAPARIN SODIUM 30 MG/0.3 ML SQ SCH (08:23)
[2020-07-03] MEDS: CARVEDILOL 6.25 MG TABLET PO SCH ×2 (08:23→21:29)
[2020-07-03] MEDS: DOCUSATE NA 100MG/10ML UDCUP PO SCH ×2 (08:24→21:29)
[2020-07-03 09:06] LABS: ABG BASE EXCESS -9.7 mmol/L (-2.0-3.0); ABG HCO3 14.5 mmol/L (21.0-28.0); ABG OXYGEN SATURATION 98.9 % (95.0-99.0); ABG PCO2 28 mmHg (32-45)
[2020-07-03] MEDS: NYSTATIN-TRIAMCINOLONE CREAM 15 GM TP SCH ×2 (09:42→21:44)
[2020-07-03] MEDS: ZOSYN 3.375GM+NS 50ML 50 ML IV SCH (13:59)
--- NOTE | 2020-07-03 16:56 | NUR ---
RD FOLLOW UP Pt continues with Vital AF 1.2 continuous tube feeding. Current rate 35mls/hr. Medications in place: Lasix, Lovenox, Pepcid. Monitored labs: BUN 58, Cr 2.5, GFR 20, BG 168, T.Bili 1.3, AST 41, Alb 2.4. S/p Extubation, CKD III. Rec to consider modify to Renal formula RD to continue to monitor. Please notify as additional nutrition concerns arise. Thank you. Addendum: 07/03/20 at [address] Amended: Links added.
[2020-07-04] VITALS (10 sets, daily range): BP systolic 131–186; BP diastolic 63–101
[2020-07-04] MEDS: ZOSYN 3.375GM+NS 50ML 50 ML IV SCH ×2 (02:00→14:30)
[2020-07-04] MEDS: ALBUTEROL SULFATE 0.042% 1.25 MG/3 ML INH IH SCH ×6 (02:09→20:47)
[2020-07-04 03:44] LABS: BASOPHILS % (AUTO) 0.3 % (0.0-5.0); EOSINOPHILS % (AUTO) 2.2 % (0.0-8.0); LYMPHOCYTES % (AUTO) 11.9 % (21.0-51.0); MEAN CORPUSCULAR HEMOGLOBIN 32.3 pg (27.0-33.0); MEAN CORPUSCULAR HGB CONC 33.3 g/dL (32.0-36.0); MEAN CORPUSCULAR VOLUME 96.8 fL (79-99); MONOCYTES % (AUTO) 10.6 % (3.0-13.0); NEUTROPHILS % (AUTO) 74.5 % (40.0-77.0); NUCLEATED RED BLOOD CELLS 2.3 % (0.0-0.19); PLATELET COUNT (AUTO) 186 K/uL (130-400); RED BLOOD CELL COUNT(AUTO) 3.72 MIL/uL (4.00-5.50); RED CELL DISTRIBUTION WIDTH 17.4 % (11.0-15.5); WHITE BLOOD COUNT (AUTO) 10.1 K/uL (4.8-10.8)
[2020-07-04 04:12] LABS: CREATININE 2.4 mg/dL (0.5-1.5); POTASSIUM 3.9 mmol/L (3.5-5.1); THYROID STIMULATING HORMONE 23.31 uIU/mL (0.36-3.74)
[2020-07-04] MEDS: INSULIN LISPRO 100 UNIT/ML 3ML SQ SCH ×4 (06:00→18:00)
[2020-07-04] MEDS: DOCUSATE NA 100MG/10ML UDCUP PO SCH ×2 (08:31→21:00)
[2020-07-04] MEDS: FAMOTIDINE/PF 20 MG/2 ML VIAL IV SCH (08:35)
[2020-07-04] MEDS: LEVETIRACETAM 100 MG/ML 5 ML UDCUP NG SCH (08:35)
[2020-07-04] MEDS: ASPIRIN 81MG TAB.CHEW PO SCH (08:36)
[2020-07-04] MEDS: FUROSEMIDE 20 MG TABLET NG SCH (08:36)
[2020-07-04] MEDS: CARVEDILOL 6.25 MG TABLET PO SCH (08:36)
[2020-07-04] MEDS: NYSTATIN-TRIAMCINOLONE CREAM 15 GM TP SCH (08:37)
--- NOTE | 2020-07-04 09:00 | NUR ---
DR. MARTINEZ ROUNDS DR. MARTINEZ AT BEDSIDE, UPDATED ON PT'S CONDITION. AT BEDSIDE AND INFORMED OF LUMBAR PUNCTURE TO BE DONE.
[2020-07-04] MEDS: SODIUM CHLORIDE 0.9% 1000ML 1,000 ML IV SCH (10:25)
[2020-07-04] MEDS: AMLODIPINE BESYLATE 5 MG TAB PO SCH (10:25)
--- NOTE | 2020-07-04 12:00 | NUR ---
LP ATTEMPT LP ATTEMPT BY SALVAGE INSPECTOR WOOD PARTS. UNSUCCESSFUL. PT AGITATED AND MOVING. DR. BARAJAS CAME TO SEE PT STATED HE WOULD ATTEMPT LP LATER ON TODAY.
--- NOTE | 2020-07-04 13:45 | NUR ---
RECEIVED TRANSFER TO ROOM 417 VIA BED. ACCOMPANIED BY Jesse ROBLES RN. PT. WITH EYES CLOSED, RESP.'S EVEN AND UNLABORED, ON VM AT 40%. NGT TO LEFT NARE SECURE; TF RESTARTED AT PREVIOUS RATE OF 35ML/HR. MITTS IN PLACE. F/C IN PLACE WITH YELLOW URINE, SECURE TO THIGH. PT. WITH PROGRESSA PULMONARY BED. BED LOW, SIDE RAILS UP.
--- NOTE | 2020-07-04 15:10 | NUR ---
FOLLOW UP. Pt NOT ABLE TO PARTICIPATE IN DYSPHAGIA EVAL AT THIS TIME. POSSIBLE LONG-TERM ALTERNATE MEANS OF NUTRITION/HYDRATION AT THIS TIME. OPTICAL SCIENTIST WILL CONTINUE TO FOLLOW Pt. Addendum: 07/04/20 at 1512 by ASHANTI GAXIOLA, SPT ST Amended: Links added.
--- NOTE | 2020-07-04 17:15 | NUR ---
Caleb JACK CRNA, IN ROOM ATTEMPTING LUMBAR PUNCTURE. THIS NURSE AT BEDSIDE TO ASSIST.
--- NOTE | 2020-07-04 20:00 | NUR ---
PATIENT RESTING IN BED, RESTLESS. O2 SATS 70-85% WITH NRB. CHANGED OUT PULSE OXIMETER. 02 SATS 100%. NG TUBE IN PLACE, PLACEMENT CHECKED.PATIENT NON VERBAL. ADJUSTED PATIENT PROPERLY UP IN BED, UPRIGHT 30 DEGREES. FEEDING AT 35/HR. 3+ GENERALIZED EDEMA AND WEEPING FROM BUE. TOLERATING ABX. NO NAUSEA OR VOMITING. WILL CONTINUE TO MONITOR.
[2020-07-04] MEDS ORDERED: FENTANYL CITRATE PF 50 MCG/1 ML 2ML VIAL ONE (20:59)
[2020-07-04] MEDS ORDERED: LIDOCAINE HCL-MPF 1% 2ML VIAL ONE (21:37)
[2020-07-05] MEDS: CARVEDILOL 6.25 MG TABLET PO SCH ×3 (00:01→20:05)
[2020-07-05] MEDS: LEVETIRACETAM 100 MG/ML 5 ML UDCUP NG SCH ×3 (00:01→20:05)
[2020-07-05] MEDS: NYSTATIN-TRIAMCINOLONE CREAM 15 GM TP SCH ×3 (00:03→20:06)
[2020-07-05 00:48] LABS: GLUCOSE, CSF 109 mg/dL (40-70); TOTAL PROTEIN, CSF 60 mg/dL (15-45)
[2020-07-05] MEDS: ALBUTEROL SULFATE 0.042% 1.25 MG/3 ML INH IH SCH ×3 (01:11→10:18)
[2020-07-05 01:51] LABS: APPEARANCE,CSF CLEAR (CLEAR); COLOR,CSF COLORLESS (COLORLESS); CSF TOTAL VOLUME 14.5 mL; CSF TUBE NUMBER 1
[2020-07-05 01:52] LABS: RED BLOOD CELL1,CSF 7 CMM (0-0); WHITE BLOOD CELL1,CSF 0 CMM (0-5)
--- NOTE | 2020-07-05 01:55 | NUR ---
ORDERS INFORMED GUN STOCK MAKER DONDON PATIENT STATUS. LUNG SOUNDS WET WITH CRACKLES. PER ORDERS; GIVE LASIX X1 AND SOLU-MEDROL X1 Addendum: 07/05/20 at 0728 by JENSEN GUZMÁN RN RN stop fluids per GUN STOCK MAKER due to crackles
[2020-07-05] MEDS ORDERED: FUROSEMIDE 10 MG/ML 4ML VIAL IV ONE (02:00)
[2020-07-05] MEDS ORDERED: METHYLPREDNISOLONE SOD SUCC 40MG/ML 1ML IVP ONE (02:00)
[2020-07-05] MEDS ORDERED: METHYLPREDNISOLONE SOD SUCC 40MG/ML 1ML ONE (02:04)
[2020-07-05] MEDS ORDERED: FUROSEMIDE 10 MG/ML 4ML VIAL ONE ×2 (02:04→02:12)
[2020-07-05] MEDS: ZOSYN 3.375GM+NS 50ML 50 ML IV SCH ×2 (02:09→14:00)
[2020-07-05 04:00] VITALS: BP 134/70
[2020-07-05] MEDS: INSULIN LISPRO 100 UNIT/ML 3ML SQ SCH ×4 (06:00→18:00)
--- NOTE | 2020-07-05 07:15 | NUR ---
Gave report to Mackenzie at bedside. Patient pulled NG tube out during report. Mackenzie aware.
--- NOTE | 2020-07-05 07:51 | NUR ---
NG TUBE PT PULLED NG TUBE OUT 14 FR.
[2020-07-05 08:05] VITALS: BP 161/83
[2020-07-05] MEDS: ENOXAPARIN SODIUM 30 MG/0.3 ML SQ SCH (09:00)
[2020-07-05] MEDS: FAMOTIDINE/PF 20 MG/2 ML VIAL IV SCH (10:33)
[2020-07-05] MEDS: AMLODIPINE BESYLATE 5 MG TAB PO SCH (10:33)
[2020-07-05] MEDS: ASPIRIN 81MG TAB.CHEW PO SCH (10:33)
[2020-07-05] MEDS: DOCUSATE NA 100MG/10ML UDCUP PO SCH ×2 (10:34→20:05)
[2020-07-05] MEDS: FUROSEMIDE 20 MG TABLET NG SCH (10:37)
--- NOTE | 2020-07-05 11:00 | NUR ---
VENTING MASK PT SWITCHED TO VENTING MASK AT 50% STATING 99%, PT ERICA VENTING MASK WELL
[2020-07-05 12:05] VITALS: BP 142/69
--- NOTE | 2020-07-05 13:00 | NUR ---
FOLLOW UP. RECOMMEND NPO- LONG-TERM ALTERNATE MEANS OF NUTRITION/HYDRATION. COTTON WRINGER ATTEMPTED TO AROUSE Pt AND CUE FOR SWALLOW RE-EVALUATION. Pt DID NOT OPEN EYES OR MOUTH AT THIS TIME. Pt NOT ABLE TO FOLLOW COMMANDS TO PARTICIPATE IN P.O. RECOMMEND LONG-TERM ALTERNATE MEANS OF NUTRITION/HYDRATION AT THIS TIME. COTTON WRINGER COORDINATED WITH NURSE RICHARD. NURSE EXPRESSED SHE WOULD LIKE TO GIVE Pt MORE TIME. COTTON WRINGER COORDINATED WITH ERGONOMICS CONSULTANT KELSEY ON RECOMMENDATIONS FOR LONG-TERM ALTERNATE MEANS OF NUTRITION/HYDRATION RECOMMENDATION AT THIS TIME. RE-EVALUATION WILL BE RE-ATTEMPTED TOMORROW. Addendum: 07/05/20 at 1529 by ASHANTI GAXIOLA [facility] Amended: Links added.
[2020-07-05 13:51] LABS: HEMATOCRIT 36.8 % (36-48); MEAN CORPUSCULAR HEMOGLOBIN 32.6 pg (27.0-33.0); MEAN CORPUSCULAR HGB CONC 33.2 g/dL (32.0-36.0); MEAN CORPUSCULAR VOLUME 98.4 fL (79-99); PLATELET COUNT (AUTO) 180 K/uL (130-400); RED BLOOD CELL COUNT(AUTO) 3.74 MIL/uL (4.00-5.50); RED CELL DISTRIBUTION WIDTH 18.9 % (11.0-15.5); WHITE BLOOD COUNT (AUTO) 7.7 K/uL (4.8-10.8)
[2020-07-05 13:59] LABS: CREATININE 2.3 mg/dL (0.5-1.5)
--- NOTE | 2020-07-05 14:10 | NUR ---
IV PT PULL OUT IV, PT IS A HARD STICK WILL ASK HOSPITALIST IF PICC LINE IS APPLICABLE FOR PT.
--- NOTE | 2020-07-05 14:17 | NUR ---
1352 BPCI Letter given.
[2020-07-05] MEDS ORDERED: LEVOTHYROXINE 75 MCG TABLET PO SCH ×2 (14:45→19:00)
--- NOTE | 2020-07-05 15:13 | NUR ---
RD UPDATE Notification for NGT placement received. Pt pulled NGT tube as per RN. NGT to be placed. Recommend resume previously placed tube feeding recommendations of Vital AF 1.2. RD to follow up to evaluate for possible PEG feedings. Please notify as additional nutrition concerns arise. thank you.
[2020-07-05 16:32] VITALS: BP 162/68
[2020-07-05 19:00] VITALS: BP 127/59
[2020-07-05] MEDS: ALBUTEROL SULFATE 0.042% 1.25 MG/3 ML INH IH PRN (20:14)
[2020-07-05 22:47] VITALS: BP 93/52
[2020-07-06] MEDS: INSULIN LISPRO 100 UNIT/ML 3ML SQ SCH ×4 (00:03→18:00)
[2020-07-06] MEDS: ALBUTEROL SULFATE 0.042% 1.25 MG/3 ML INH IH PRN ×5 (00:27→23:28)
[2020-07-06] MEDS: ZOSYN 3.375GM+NS 50ML 50 ML IV SCH ×2 (02:16→14:00)
[2020-07-06] MEDS: SODIUM CHLORIDE 0.9% 1000ML 1,000 ML IV SCH ×2 (02:17→11:45)
[2020-07-06 04:05] VITALS: BP 140/80
[2020-07-06 05:31] LABS: BASOPHILS % (AUTO) 0.1 % (0.0-5.0); HEMATOCRIT 34.9 % (36-48); LYMPHOCYTES % (AUTO) 6.2 % (21.0-51.0); MEAN CORPUSCULAR HEMOGLOBIN 32.2 pg (27.0-33.0); MEAN CORPUSCULAR HGB CONC 33.2 g/dL (32.0-36.0); MEAN CORPUSCULAR VOLUME 96.9 fL (79-99); MONOCYTES % (AUTO) 6.7 % (3.0-13.0); NEUTROPHILS % (AUTO) 86.5 % (40.0-77.0); NUCLEATED RED BLOOD CELLS 1.2 % (0.0-0.19); PLATELET COUNT (AUTO) 209 K/uL (130-400); RED CELL DISTRIBUTION WIDTH 18.6 % (11.0-15.5); WHITE BLOOD COUNT (AUTO) 8.4 K/uL (4.8-10.8)
[2020-07-06 05:54] LABS: ALBUMIN 2.3 g/dL (3.5-5.0); BILIRUBIN,TOTAL 0.7 mg/dL (0.2-1.0); CREATININE 2.2 mg/dL (0.5-1.5); MAGNESIUM 1.9 mg/dL (1.80-2.40); POTASSIUM 4.1 mmol/L (3.5-5.1); TOTAL PROTEIN, SERUM 6.1 g/dL (6.0-8.3)
[2020-07-06] MEDS: LEVOTHYROXINE 75 MCG TABLET PO SCH (06:31)
[2020-07-06 08:41] VITALS: BP 146/69
[2020-07-06] MEDS: FUROSEMIDE 20 MG TABLET NG SCH (09:00)
[2020-07-06] MEDS: NYSTATIN-TRIAMCINOLONE CREAM 15 GM TP SCH ×2 (09:00→23:45)
[2020-07-06] MEDS: ASPIRIN 81MG TAB.CHEW PO SCH (09:00)
[2020-07-06] MEDS: AMLODIPINE BESYLATE 5 MG TAB PO SCH (09:00)
[2020-07-06] MEDS: CARVEDILOL 6.25 MG TABLET PO SCH ×2 (09:00→21:00)
[2020-07-06] MEDS: FAMOTIDINE/PF 20 MG/2 ML VIAL IV SCH (09:00)
[2020-07-06] MEDS: DOCUSATE NA 100MG/10ML UDCUP PO SCH ×2 (09:00→21:00)
[2020-07-06] MEDS: ENOXAPARIN SODIUM 30 MG/0.3 ML SQ SCH (09:00)
--- NOTE | 2020-07-06 10:53 | NUR ---
the core blower operator reported that the patient pull the ngt out while she was doing patient care.
--- NOTE | 2020-07-06 11:16 | NUR ---
the verbalized to wait until the patient will wake up to insert the ngt.
[2020-07-06 13:52] VITALS: BP 135/73
--- NOTE | 2020-07-06 14:35 | NUR ---
attempted to insert the ngt 4 times but the patient keep on resisting and not been successful to put the ngt. notified dr. saba and he ordered gi consult for peg tube placement.
--- NOTE | 2020-07-06 16:42 | NUR ---
notified the office of dr. johnson about the consult, simone of the dr. johnson's office verbalized that she will notify dr. johnson.
--- NOTE | 2020-07-06 16:51 | NUR ---
as per dr. johnson he wouldnt take the consult as of now because the patient is on ventimask 15 liters and this is not appropriate for the patient for peg tube as he said. when the patient is on 2 L nasal cannula to reconsult GI
[2020-07-06 16:56] VITALS: BP 129/61
[2020-07-06] MEDS ORDERED: PHARMACY COMMUNICATION MISC SCH (18:00)
[2020-07-06 20:00] VITALS: BP 141/78
--- NOTE | 2020-07-06 20:00 | NUR ---
REMOVED PICC LINE PER MD'S ORDER POSITION PT ON TRENDELENBURG POSITION. ASKED PATIENT TO HOLD HER BREATHE WHEN REMOVING HE PICC LINE. USED STERILE TECHNIQUE, GENTLY AND STEADILY PULLED OUT PICC LINE. ONCE THE CATHETER REMOVED, APPLIED OCCLUSIVE DRESSING. NO DRAINAGE, SWELLING AT THE SITE. PT TOLERATED THE PICC LINE REMOVAL. CATHETER WAS INTACT, NO BREAKAGE
--- NOTE | 2020-07-06 23:00 | NUR ---
NGT unable to insert informed STUDY LEAD Amparo, NGT unable to insert, dayshift tried but failed as well. maintained pt on npo for now
--- NOTE | 2020-07-06 23:30 | NUR ---
O2 DESATURATION NOTED PATIENT TO HAVE O2 DESATURATION TO ROOM AIR. HOOK IMMEDIATELY PATIENT TO VENTURI MASK. HOWEVER PATIENT o2 SAT WAS ON 78% BP 130/75 RR 22 HR 62. LUNGS SOUND DIMINISHED BILATERAL LOBES. HOOKED PATIENT TO NON REBREATHER MASK 15 LPM. MAINTAINED ON FOWLERS POSITION. O2 SAT PICKED UP TO 89% INTERMITTENTLY. AT THIS POINT O2 SAT STABILIZE AT 95%. SPOKE WITH ANAHY ROBERT, INFORMED ABOUT DESATURATION OF O2. SHE ORDERED BIPAP PRN RT TO TITRATE. CXR IN 7 AM. DC IV FLUIDS. MONITORED ACCORDINGLY
[2020-07-06] MEDS: LEVETIRACETAM 250 MG in SODIUM CHLORIDE 0.9% 100 ML IV SCH (23:45)
[2020-07-07] VITALS (7 sets, daily range): BP systolic 129–206; BP diastolic 14–94
[2020-07-07] MEDS: ZOSYN 3.375GM+NS 50ML 50 ML IV SCH ×2 (02:14→15:48)
[2020-07-07] MEDS: INSULIN LISPRO 100 UNIT/ML 3ML SQ SCH ×4 (06:00→18:00)
[2020-07-07] MEDS: LEVETIRACETAM 250 MG in SODIUM CHLORIDE 0.9% 100 ML IV SCH ×2 (06:00→18:08)
[2020-07-07] MEDS: LEVOTHYROXINE 75 MCG TABLET PO SCH (06:10)
[2020-07-07 06:37] LABS: BASOPHILS % (AUTO) 0.2 % (0.0-5.0); EOSINOPHILS % (AUTO) 2.1 % (0.0-8.0); HEMATOCRIT 39.6 % (36-48); LYMPHOCYTES % (AUTO) 14.9 % (21.0-51.0); MEAN CORPUSCULAR HEMOGLOBIN 32.8 pg (27.0-33.0); MEAN CORPUSCULAR HGB CONC 33.1 g/dL (32.0-36.0); MONOCYTES % (AUTO) 7.7 % (3.0-13.0); NEUTROPHILS % (AUTO) 74.8 % (40.0-77.0); NUCLEATED RED BLOOD CELLS 0.9 % (0.0-0.19); PLATELET COUNT (AUTO) 228 K/uL (130-400); RED CELL DISTRIBUTION WIDTH 20.1 % (11.0-15.5); WHITE BLOOD COUNT (AUTO) 9.4 K/uL (4.8-10.8)
[2020-07-07 06:57] LABS: POTASSIUM 3.7 mmol/L (3.5-5.1)
[2020-07-07] MEDS: ALBUTEROL SULFATE 0.042% 1.25 MG/3 ML INH IH PRN ×3 (07:01→16:59)
[2020-07-07] MEDS: CARVEDILOL 6.25 MG TABLET PO SCH (09:00)
[2020-07-07] MEDS: AMLODIPINE BESYLATE 5 MG TAB PO SCH (09:00)
[2020-07-07] MEDS: FAMOTIDINE/PF 20 MG/2 ML VIAL IV SCH (09:11)
[2020-07-07] MEDS: NYSTATIN-TRIAMCINOLONE CREAM 15 GM TP SCH ×2 (09:11→21:00)
[2020-07-07] MEDS: CLONIDINE 0.1 MG/ 24 HR PATCH TD SCH (11:32)
[2020-07-07] MEDS: DOCUSATE NA 100MG/10ML UDCUP PO SCH ×2 (12:57→21:47)
[2020-07-07] MEDS: FUROSEMIDE 20 MG TABLET NG SCH (12:57)
[2020-07-07] MEDS: DEXTROSE 5 %-0.45 % NACL 1,000 ML IV SCH (12:57)
[2020-07-07] MEDS: ASPIRIN 81MG TAB.CHEW PO SCH (12:57)
[2020-07-07] MEDS: ENOXAPARIN SODIUM 30 MG/0.3 ML SQ SCH (15:50)
[2020-07-07] MEDS: HYDRALAZINE HCL 20 MG/ML VIAL IV PRN ×2 (17:03→20:54)
[2020-07-07] MEDS: ATORVASTATIN CALCIUM 20 MG TABLET PO SCH (21:47)
--- NOTE | 2020-07-07 23:45 | NUR ---
NG TUBE PT PULLED OUT NG TUBE. NARES WITH SCANT BLEEDING. NOTIFIED ANAHY ROBERT NP. NEW ORDER TO INSERT NG TUBE.
--- NOTE | 2020-07-08 | NUR ---
NEW ORDER FOR CHEST XRAY TO R/O ASPIRATION.
[2020-07-08 00:03] VITALS: BP 169/72
[2020-07-08] MEDS: ALBUTEROL SULFATE 0.042% 1.25 MG/3 ML INH IH PRN ×4 (00:05→18:56)
[2020-07-08] MEDS: ZOSYN 3.375GM+NS 50ML 50 ML IV SCH ×2 (02:21→14:35)
--- NOTE | 2020-07-08 04:05 | NUR ---
UNABLE TO INSERT NG TUBE. ATTEMPTED ON BOTH NARES. NARES WITH SCANT BLEEDING. PT CONSTANTLY MOVING, HELD PTS HEAD WITHOUT CAUSING INJURY. PT SCREAMING AND YELLING "NO". NOTIFIED ANAHY ROBERT NP.
[2020-07-08 04:11] VITALS: BP 157/72
[2020-07-08] MEDS: DEXTROSE 5 %-0.45 % NACL 1,000 ML IV SCH (05:00)
[2020-07-08] MEDS: INSULIN LISPRO 100 UNIT/ML 3ML SQ SCH ×4 (06:00→17:56)
[2020-07-08 06:04] LABS: BASOPHILS % (AUTO) 0.3 % (0.0-5.0); EOSINOPHILS % (AUTO) 2.5 % (0.0-8.0); HEMATOCRIT 38.7 % (36-48); LYMPHOCYTES % (AUTO) 11.3 % (21.0-51.0); MEAN CORPUSCULAR HEMOGLOBIN 32.7 pg (27.0-33.0); MEAN CORPUSCULAR HGB CONC 33.6 g/dL (32.0-36.0); MEAN CORPUSCULAR VOLUME 97.5 fL (79-99); MONOCYTES % (AUTO) 6.7 % (3.0-13.0); NEUTROPHILS % (AUTO) 78.8 % (40.0-77.0); PLATELET COUNT (AUTO) 221 K/uL (130-400); RED BLOOD CELL COUNT(AUTO) 3.97 MIL/uL (4.00-5.50); RED CELL DISTRIBUTION WIDTH 20.4 % (11.0-15.5)
[2020-07-08 06:14] LABS: INR 1.2 (0.85-1.15); PROTHROMBIN TIME 12.9 SEC (9.6-11.6)
[2020-07-08 06:28] LABS: ALBUMIN 2.4 g/dL (3.5-5.0); BILIRUBIN,TOTAL 1.2 mg/dL (0.2-1.0); CREATININE 1.8 mg/dL (0.5-1.5); POTASSIUM 3.7 mmol/L (3.5-5.1); TOTAL PROTEIN, SERUM 6.2 g/dL (6.0-8.3)
[2020-07-08] MEDS: LEVOTHYROXINE 75 MCG TABLET PO SCH (06:30)
--- NOTE | 2020-07-08 06:34 | NUR ---
PT UNABLE TO SWALLOW. NO NG TUBE AVAILABLE TO ADMINISTER SYNTHROID MEDICATION.
[2020-07-08] MEDS: LEVETIRACETAM 250 MG in SODIUM CHLORIDE 0.9% 100 ML IV SCH ×2 (06:37→17:56)
[2020-07-08 07:32] VITALS: BP 133/88
[2020-07-08] MEDS: ENOXAPARIN SODIUM 30 MG/0.3 ML SQ SCH (09:00)
[2020-07-08] MEDS: ASPIRIN 81MG TAB.CHEW PO SCH (09:00)
[2020-07-08] MEDS: FUROSEMIDE 20 MG TABLET NG SCH (09:00)
[2020-07-08] MEDS: DOCUSATE NA 100MG/10ML UDCUP PO SCH ×2 (09:00→21:00)
[2020-07-08] MEDS: CLONIDINE 0.1 MG/ 24 HR PATCH TD SCH (10:12)
[2020-07-08] MEDS: FAMOTIDINE/PF 20 MG/2 ML VIAL IV SCH (10:12)
[2020-07-08 11:54] VITALS: BP 117/89
[2020-07-08] MEDS: NYSTATIN-TRIAMCINOLONE CREAM 15 GM TP SCH ×2 (14:35→21:00)
[2020-07-08 15:37] VITALS: BP 118/89
[2020-07-08 20:00] VITALS: BP 171/74
[2020-07-08] MEDS: ATORVASTATIN CALCIUM 20 MG TABLET PO SCH (21:00)
[2020-07-09] VITALS (7 sets, daily range): BP systolic 139–185; BP diastolic 74–105
[2020-07-09] MEDS: ZOSYN 3.375GM+NS 50ML 50 ML IV SCH ×2 (03:06→15:59)
[2020-07-09] MEDS: LEVETIRACETAM 250 MG in SODIUM CHLORIDE 0.9% 100 ML IV SCH ×2 (05:40→18:18)
[2020-07-09] MEDS: INSULIN LISPRO 100 UNIT/ML 3ML SQ SCH ×4 (06:00→16:59)
[2020-07-09 06:26] LABS: BASOPHILS % (AUTO) 0.4 % (0.0-5.0); EOSINOPHILS % (AUTO) 2.5 % (0.0-8.0); HEMATOCRIT 36.7 % (36-48); LYMPHOCYTES % (AUTO) 12.1 % (21.0-51.0); MEAN CORPUSCULAR HEMOGLOBIN 32.1 pg (27.0-33.0); MEAN CORPUSCULAR HGB CONC 32.7 g/dL (32.0-36.0); MEAN CORPUSCULAR VOLUME 98.1 fL (79-99); NEUTROPHILS % (AUTO) 76.7 % (40.0-77.0); NUCLEATED RED BLOOD CELLS 0.3 % (0.0-0.19); PLATELET COUNT (AUTO) 189 K/uL (130-400); RED BLOOD CELL COUNT(AUTO) 3.74 MIL/uL (4.00-5.50); RED CELL DISTRIBUTION WIDTH 20.3 % (11.0-15.5); WHITE BLOOD COUNT (AUTO) 6.8 K/uL (4.8-10.8)
[2020-07-09] MEDS: LEVOTHYROXINE 75 MCG TABLET PO SCH (06:30)
[2020-07-09 06:37] LABS: ALBUMIN 2.1 g/dL (3.5-5.0); CREATININE 1.5 mg/dL (0.5-1.5); MAGNESIUM 2.4 mg/dL (1.80-2.40); PHOSPHORUS 3.6 mg/dL (2.5-4.9); POTASSIUM 3.4 mmol/L (3.5-5.1); TOTAL PROTEIN, SERUM 5.6 g/dL (6.0-8.3)
[2020-07-09] MEDS: ALBUTEROL SULFATE 0.042% 1.25 MG/3 ML INH IH PRN ×2 (06:41→11:17)
[2020-07-09] MEDS: NYSTATIN-TRIAMCINOLONE CREAM 15 GM TP SCH ×2 (09:00→19:57)
[2020-07-09] MEDS: ASPIRIN 81MG TAB.CHEW PO SCH (09:00)
[2020-07-09] MEDS: DOCUSATE NA 100MG/10ML UDCUP PO SCH ×2 (09:00→19:56)
[2020-07-09] MEDS: FUROSEMIDE 20 MG TABLET NG SCH (09:00)
[2020-07-09] MEDS: CLONIDINE 0.1 MG/ 24 HR PATCH TD SCH (10:43)
[2020-07-09] MEDS: FAMOTIDINE/PF 20 MG/2 ML VIAL IV SCH (10:44)
--- NOTE | 2020-07-09 11:49 | NUR ---
RD FOLLOW UP Pt refusal and uncooperative with NGT placement. Pending possible PEG placement. Tube Feeding re-evaluated. New Recommendations. Recommend initiate continuous Suplena Tube Feeding at 20mls/hr. Goal rate 40mls/hr. when medically feasible. Recommend flushes at 150mls [id number]. Recommendations faxed to Sanjay RN notified. RD NOTE: Pt refusal of NGT re-placement. Repeat pulling of feeding tube. S/S of dehydration. Pending possible PEG placement. Monitored labs: BUN 49, GFR 36, Cr 1.5, K 3.4, Na 146, BNP 1700. Pt with high fluid output. Fluid input unavailable. Recommend monitor serum potassium status, fluid status, I/O, Renal status. RD to continue to monitor. Please notify as additional nutrition concerns arise. Thank you. Addendum: 07/09/20 at [address] Amended: Links added.
--- NOTE | 2020-07-09 12:25 | NUR ---
DYSPHAGIA RE-EVAL COMPLETED. +S/S OF ASPIRATION. RECOMMEND NPO, LONG-TERM ALTERNATE MEANS OF NUTRITION/HYDRATION. RECOMMENDATIONS: 1. LONG-TERM ALTERNATE MEANS OF NUTRITION/HYDRATION. 2. SKILLED SPEECH THERAPY 3-5XWK FOR 4 WEEKS TARGETING SWALLOWING LTG1: Pt WILL TOLERATE LEAST RESTRICTIVE DIET WITH NO OVERT S/S OF ASPIRATION. STG1: Pt WILL COMPLETED ORAL MOTOR COORDINATION WITH 70% ACCURACY. STG2: Pt WILL COMPLETE LARYNGEAL ELEVATION/EXCURSION EXERCISES WITH 70% ACCURACY. STG3: Pt WILL COMPLETE DRY SWALLOWS WITH NO ABSENT SWALLOWS IN 10/10 TRIALS. STG4: SKILLED EDUCATION Pt/FAMILY/STAFF. GRADES 1 THROUGH 6 TEACHER EDUCATED ON RISKS AND CONSEQUENCES OF ASPIRATION. HE STATED THAT HE WAS AGREEABLE TO PEG TUBE AT THIS TIME. GRADES 1 THROUGH 6 TEACHER COORDINATED WITH NURSE BRYAN. ALL QUESTIONS ANSWERED DURING VISIT. Addendum: 07/09/20 at 1230 by ASHANTI GAXIOLA, [facility] ST Amended: Links added.
[2020-07-09] MEDS: ALBUTEROL SULFATE 0.042% 1.25 MG/3 ML INH IH SCH ×2 (15:15→19:35)
[2020-07-09] MEDS: ENOXAPARIN SODIUM 30 MG/0.3 ML SQ SCH (15:59)
[2020-07-09] MEDS: FUROSEMIDE 10 MG/ML 2ML VIAL IV SCH (16:41)
--- NOTE | 2020-07-09 19:30 | NUR ---
CONSENT REPORT RECEIVED FROM MERCEDES HAMILTON. CONSENT FOR EGD WITH PEG PLACEMENT DONE. TELEPHONE CONSENT TAKEN FROM PT'S SPOUSE MACK CHARLES, WITNESSED BY MERCEDES HAMILTON AND R PROGRAMMER. FORM PLACED IN CHART.
[2020-07-09] MEDS: ATORVASTATIN CALCIUM 20 MG TABLET PO SCH (19:57)
[2020-07-09] MEDS: HONEY 1 APPL/ML TUBE TP SCH (20:15)
--- NOTE | 2020-07-09 20:15 | NUR ---
MEDS SHIFT ASSESSMENT DONE, PLEASE REFER TO CHART. PT'S PO MED HELD AT THIS TIME PT IS NPO SHE HAS DYSPHAGIA, PENDING PEG PLACEMENT IN AM. WOUND DRESSING TO BILATERAL HEELS DONE. CLEANSED WOUNDS WITH SALINE, PAT DRY, APPLIED MEDIHONEY THEN COVERED WITH GAUZE AND SECURED WITH KERLIX AND TAPE. PCP IN TO GIVE PT A BED BATH. PT TOLERATED ACTIVITY WELL. KEPT WARM AND DRY. Addendum: 07/09/20 at 2214 by JAKY ANDERSON RN RN Amended: Links added.
[2020-07-09] MEDS: HYDRALAZINE HCL 20 MG/ML VIAL IV PRN (21:01)
[2020-07-10] VITALS (20 sets, daily range): BP systolic 124–169; BP diastolic 56–101
--- NOTE | 2020-07-10 00:20 | NUR ---
PAGED PT'S BP STILL ELEVATED BUT PT IS RESTLESS AND HAS NOT SLEPT YET. MAKING SOUNDS BUT IS NOT UNABLE TO COMPREHEND, JUST MAKING SOUNDS. PAGED AJ, NETWORKS COMPUTER CONSULTANT HYDRAULIC LIFT OPERATOR FOR HOSPITALIST, VIA ANSWERING SERVICE. NETWORKS COMPUTER CONSULTANT CALLED BACK AND REFERRED PT'S CONDITION. NEW MED ORDER GIVEN, PLEASE REFER TO CPOE. WILL MEDICATE PT.
[2020-07-10] MEDS: METOPROLOL TARTRATE 1 MG/ML 5ML VIAL IV SCH (01:04)
[2020-07-10] MEDS: ZOSYN 3.375GM+NS 50ML 50 ML IV SCH ×2 (01:04→12:45)
--- NOTE | 2020-07-10 02:00 | NUR ---
MITTENS PCP PLACED PT'S MITTENS ON PT IS TRYING TO REMOVE HER PICC LINE. WILL MONITOR CLOSELY.
[2020-07-10] MEDS: HYDRALAZINE HCL 20 MG/ML VIAL IV PRN (02:47)
--- NOTE | 2020-07-10 04:56 | NUR ---
PAGED PT IS MOANING IN BED AND HAS NOT SETTLED DOWN TO REST. PAGED AJ, RN TRANSPLANT MEDICAL ADMINISTRATIVE SPECIALIST FOR HOSPITALIST, VIA ANSWERING SERVICE FOR IV PAIN MEDS. AWAITING CALL BACK.
[2020-07-10] MEDS ORDERED: MORPHINE SULFATE 2 MG/ML 1ML SYG IVP ONE (05:00)
--- NOTE | 2020-07-10 05:00 | NUR ---
PROOFSHEET CORRECTOR ANGELO,PROOFSHEET CORRECTOR, CALLED BACK AND REFERRED PT'S CONDITION. NEW MED ORDER GIVEN, PLEASE REFER TO CPOE. WILL MEDICATE PT.
[2020-07-10] MEDS ORDERED: MORPHINE SULFATE 2 MG/ML 1ML SYG ONE (05:05)
[2020-07-10] MEDS: LEVETIRACETAM 250 MG in SODIUM CHLORIDE 0.9% 100 ML IV SCH ×2 (05:17→17:06)
[2020-07-10] MEDS: INSULIN LISPRO 100 UNIT/ML 3ML SQ SCH ×4 (05:59→17:42)
[2020-07-10 06:00] LABS: BASOPHILS % (AUTO) 0.5 % (0.0-5.0); EOSINOPHILS % (AUTO) 2.2 % (0.0-8.0); HEMATOCRIT 39.1 % (36-48); LYMPHOCYTES % (AUTO) 13.9 % (21.0-51.0); MEAN CORPUSCULAR HEMOGLOBIN 33.1 pg (27.0-33.0); MEAN CORPUSCULAR HGB CONC 33.8 g/dL (32.0-36.0); MONOCYTES % (AUTO) 8.4 % (3.0-13.0); NEUTROPHILS % (AUTO) 74.6 % (40.0-77.0); NUCLEATED RED BLOOD CELLS 0.2 % (0.0-0.19); PLATELET COUNT (AUTO) 222 K/uL (130-400); RED BLOOD CELL COUNT(AUTO) 3.99 MIL/uL (4.00-5.50); RED CELL DISTRIBUTION WIDTH 20.6 % (11.0-15.5); WHITE BLOOD COUNT (AUTO) 8.2 K/uL (4.8-10.8)
[2020-07-10] MEDS: LEVOTHYROXINE 75 MCG TABLET PO SCH (06:00)
[2020-07-10 06:17] LABS: ALBUMIN 2.4 g/dL (3.5-5.0); BILIRUBIN,TOTAL 1.3 mg/dL (0.2-1.0); CREATININE 1.4 mg/dL (0.5-1.5); POTASSIUM 3.6 mmol/L (3.5-5.1); TOTAL PROTEIN, SERUM 6.4 g/dL (6.0-8.3)
[2020-07-10] MEDS: ALBUTEROL SULFATE 0.042% 1.25 MG/3 ML INH IH SCH ×5 (06:37→23:28)
--- NOTE | 2020-07-10 07:05 | NUR ---
REPORT REPORT GIVEN TO AM SHIFT MERCEDES KRAFT. NURSES'S ROUNDS DONE. FOR MORE CARE AND MANAGEMENT.
[2020-07-10] MEDS ORDERED: FUROSEMIDE 10 MG/ML 2ML VIAL IV SCH (09:00)
[2020-07-10] MEDS: DOCUSATE NA 100MG/10ML UDCUP PO SCH ×2 (09:00→20:06)
[2020-07-10] MEDS: FAMOTIDINE/PF 20 MG/2 ML VIAL IV SCH (10:37)
[2020-07-10] MEDS: FUROSEMIDE 10 MG/ML 2ML VIAL IV SCH (10:43)
[2020-07-10] MEDS: NYSTATIN-TRIAMCINOLONE CREAM 15 GM TP SCH ×2 (10:44→20:07)
[2020-07-10] MEDS ORDERED: PROPOFOL 10 MG/ML 20ML VIAL IV ONE (11:11)
--- NOTE | 2020-07-10 11:43 | NUR ---
[facility]SE AT BEDSIDE. SPOUSE INFORMED OF PATIENT BEING A BPCI PATIENT AND SNF WOULD BE MORE APPROPRIATE. PER SPOUSE, DOES NOT WANT SNF. STATES " SHE WAS AT [facility] LAST TIME FOR A WHILE, I WOULD PREFER THAT SHE GOES THERE AND NOT A HALFWAY". AMARJIT COMPLETED FOR [facility]. CLINICAL PACKET ALONG WITH COVID FORM EMAILED TO GOLDY AT [facility]. THIS CM TO FOLLOW UP ON APPROVAL. PATIENT PENDING PEG TUBE PLACEMENT TODAY.
[2020-07-10] MEDS: CLONIDINE 0.1 MG/ 24 HR PATCH TD SCH (12:44)
[2020-07-10] MEDS: ASPIRIN 81MG TAB.CHEW PO SCH (12:44)
--- NOTE | 2020-07-10 13:30 | NUR ---
PT W DRY BLOOD TO MOUTH UNABLE TO VISUALIZE WHERE BLOOD COMING FROM. CAP SIZER AND NURSE PROVIDED ORAL CARE WITH MINIMAL SUCTIONING. WILL CONTINUE TO PROVIDE ORAL CARE SHE HAS DRY DARK AND QUESTIONABLE ACTIVE BLOOD IN MOUTH. JUAN HERNANDES REPORTS SHE GAVE ORAL CARE TO PATIENT PRIOR TO PATIENT BEING TAKEN FOR PEG PLACEMENT AND NO BLEEDING NOTED. WILL CONTINUE TO PROVIDE ORAL CARE TO REMOVE MUCH DRY BLOOD FROM MOUTH. WILL CONTINUE TO MONITOR.
--- NOTE | 2020-07-10 16:07 | NUR ---
CM NOTE/[facility] ACCEPTED PER [facility] FROM [facility], PATIENT APPROVED AND ACCEPTED. PATIENT REHAD PEG TUBE INSERTION TODAY, PENDING MD RECOMMENDATIONS FOR DC.
--- NOTE | 2020-07-10 17:30 | NUR ---
RESIDUAL CHECK WITH LESS THAN 5ML. FLUSHED WITH 150ML H20. WILL CONTINUE TO MONITOR.
--- NOTE | 2020-07-10 20:00 | NUR ---
Assessment upon shift change Patient has dry blood and is actively bleeding from inside mouth. Oral care given 2x by Nurse and CABLE INSTALLATION TECHNICIAN. Patient continues to bleed. Day shift Nurse Leslye stated patient has been bleeding since after peg placement today. Patient has saturated bright red blood on dressing of the new peg. Residual greater than 100 ml at 2000 Feeding was at 35ml/hr. Feeding put on hold. Will notify hospitalist.
--- NOTE | 2020-07-10 20:00 | NUR ---
TUBE FEED STOPPED. RESIDUAL > 200 CC.
[2020-07-10] MEDS: ATORVASTATIN CALCIUM 20 MG TABLET PO SCH (20:06)
[2020-07-10] MEDS: HONEY 1 APPL/ML TUBE TP SCH (20:06)
--- NOTE | 2020-07-10 22:00 | NUR ---
PATIENT HAS A RESIDUAL OF >200 ML. WILL CONTINUE TO HOLD.
--- NOTE | 2020-07-11 | NUR ---
FLUSHED PEG WITH 150 OF WATER. 60 RESIDUAL. RESTARTED FEED AT 25 ML/HR. REDUCED RATE BY 10 ML. PATIENT NO LONGER HAS BLOOD TO MOUTH OR BLOOD TO PEG TUBE DRESSING SITE.
[2020-07-11] MEDS: METOPROLOL TARTRATE 1 MG/ML 5ML VIAL IV SCH (00:30)
[2020-07-11 03:42] VITALS: BP 147/82
[2020-07-11] MEDS: ZOSYN 3.375GM+NS 50ML 50 ML IV SCH ×2 (03:43→12:56)
[2020-07-11] MEDS: LEVETIRACETAM 250 MG in SODIUM CHLORIDE 0.9% 100 ML IV SCH (05:12)
[2020-07-11] MEDS: LEVOTHYROXINE 75 MCG TABLET PO SCH (05:12)
[2020-07-11] MEDS: INSULIN LISPRO 100 UNIT/ML 3ML SQ SCH ×4 (05:46→18:00)
[2020-07-11] MEDS: ALBUTEROL SULFATE 0.042% 1.25 MG/3 ML INH IH SCH ×3 (06:39→19:06)
[2020-07-11 07:29] LABS: BASOPHILS % (AUTO) 0.4 % (0.0-5.0); EOSINOPHILS % (AUTO) 3.1 % (0.0-8.0); HEMATOCRIT 40.3 % (36-48); LYMPHOCYTES % (AUTO) 14.8 % (21.0-51.0); MEAN CORPUSCULAR HEMOGLOBIN 32.2 pg (27.0-33.0); MEAN CORPUSCULAR HGB CONC 32.8 g/dL (32.0-36.0); MEAN CORPUSCULAR VOLUME 98.3 fL (79-99); MONOCYTES % (AUTO) 7.6 % (3.0-13.0); NEUTROPHILS % (AUTO) 73.7 % (40.0-77.0); PLATELET COUNT (AUTO) 179 K/uL (130-400); RED CELL DISTRIBUTION WIDTH 20.6 % (11.0-15.5); WHITE BLOOD COUNT (AUTO) 7.9 K/uL (4.8-10.8)
[2020-07-11 08:00] VITALS: BP 151/92
[2020-07-11 08:02] LABS: ALBUMIN 2.3 g/dL (3.5-5.0); BILIRUBIN,TOTAL 1.2 mg/dL (0.2-1.0); CREATININE 1.4 mg/dL (0.5-1.5); POTASSIUM 3.3 mmol/L (3.5-5.1); TOTAL PROTEIN, SERUM 6.2 g/dL (6.0-8.3)
[2020-07-11] MEDS: DOCUSATE NA 100MG/10ML UDCUP PO SCH (09:55)
[2020-07-11] MEDS: FUROSEMIDE 10 MG/ML 2ML VIAL IV SCH (09:55)
[2020-07-11] MEDS: ASPIRIN 81MG TAB.CHEW PO SCH (09:56)
--- NOTE | 2020-07-11 10:00 | NUR ---
<5ML RESIDUAL. STARTED SUPLENA AT 25ML/HR. HOB ELEVATED 35 DEGREES. ABDOMEN SOFT, NON DISTENDED. WILL CONTINUE TO FOLLOW.
[2020-07-11] MEDS: CLONIDINE 0.1 MG/ 24 HR PATCH TD SCH (10:02)
[2020-07-11] MEDS: FAMOTIDINE/PF 20 MG/2 ML VIAL IV SCH (10:02)
[2020-07-11] MEDS: NYSTATIN-TRIAMCINOLONE CREAM 15 GM TP SCH (10:02)
[2020-07-11 12:00] VITALS: BP 154/99
[2020-07-11] MEDS ORDERED: POTASSIUM CHLORIDE 10% ELIXIR 20 MEQ/15 ML UDCUP PO SCH ×2 (13:00→17:00)
[2020-07-11] MEDS ORDERED: POTASSIUM CHLORIDE 20 MEQ ERTAB PO SCH (14:00)
[2020-07-11 16:00] VITALS: BP 164/86
--- NOTE | 2020-07-11 16:00 | NUR ---
5ML RESIDUAL. INCREASED FEEDING SUPLENA TO 30ML/HR. HOB ELEVATED 35 DEGREES. ABDOMEN SOFT, NON DISTENDED. WILL CONTINUE TO FOLLOW.
--- NOTE | 2020-07-11 18:02 | NUR ---
REPORT CALLED AND GIVEN TO MERCEDES MEJIA. JACKIE REDDY RN VERBALIZED UNDERSTANDING.
--- NOTE | 2020-07-11 20:00 | NUR ---
PATIENT ASSESSED. ALERT BUT UNABLE TO ANSWER QUESTIONS INCLUDING NAME, TIME, PERSON, .NOTED INCOMPREHENSIBLE SOUND. PT ON ROOM AIR O2 SAT 97%-98%. 2114 EMS CAME. REMOVED CONNECTION OF FEEDING TO PEG. [facility] ALL DOCUMENTS GIVEN TO EMS STAFF ANGELO, INCLUDING DOCUMENTS FOR [facility]. ANGELO VERBALIZED UNDERSTANDING.
[2020-07-11] MEDS ORDERED: LEVETIRACETAM 250 MG TABLET PO SCH (21:00)
== END 2020-07-11 21:15 | DRG 871 ==
LOC: EDH 13:03 → EDHIP 14:47 → 2DH 22:06 → 4CH 07-04 14:10 → 4BH 07-05 07:44
PROVIDERS: ADMIT Hospitalist; ATTEND Hospitalist
PROC: 5A1945Z Respiratory Ventilation, 24-96 Consecutive Hours (ICD-10-PCS; 2020-06-26)
PROC: 0BH17EZ Insertion of Endotracheal Airway into Trachea, Via Natural or Artificial Opening (ICD-10-PCS; 2020-06-26)
PROC: 5A09357 Assistance with Respiratory Ventilation, Less than 24 Consecutive Hours, Continuous Positive Airway Pressure (ICD-10-PCS; 2020-06-28)
PROC: 05HY33Z Insertion of Infusion Device into Upper Vein, Percutaneous Approach (ICD-10-PCS; principal; 2020-07-05)
PROC: 4A00X4Z Measurement of Central Nervous Electrical Activity, External Approach (ICD-10-PCS; 2020-07-09)
DX: A41.9 Sepsis, unspecified organism (principal); G93.41 Metabolic encephalopathy; J96.21 Acute and chronic respiratory failure with hypoxia; E11.641 Type 2 diabetes mellitus with hypoglycemia with coma; J18.9 Pneumonia, unspecified organism; A02.9 Salmonella infection, unspecified; N39.0 Urinary tract infection, site not specified; M62.82 Rhabdomyolysis; I47.2 Ventricular tachycardia; N17.9 Acute kidney failure, unspecified; I50.22 Chronic systolic (congestive) heart failure; I69.351 Hemiplegia and hemiparesis following cerebral infarction affecting right dominant side; E87.0 Hyperosmolality and hypernatremia; I13.0 Hypertensive heart and chronic kidney disease with heart failure and stage 1 through stage 4 chronic kidney disease, or unspecified chronic kidney disease; J44.0 Chronic obstructive pulmonary disease with (acute) lower respiratory infection; B96.89 Other specified bacterial agents as the cause of diseases classified elsewhere; I25.5 Ischemic cardiomyopathy; N18.30 Chronic kidney disease, stage 3 unspecified; I25.10 Atherosclerotic heart disease of native coronary artery without angina pectoris; L89.619 Pressure ulcer of right heel, unspecified stage; L89.629 Pressure ulcer of left heel, unspecified stage; D64.9 Anemia, unspecified; E03.9 Hypothyroidism, unspecified; E11.22 Type 2 diabetes mellitus with diabetic chronic kidney disease; E11.51 Type 2 diabetes mellitus with diabetic peripheral angiopathy without gangrene; E66.01 Morbid (severe) obesity due to excess calories; E78.5 Hyperlipidemia, unspecified; E83.42 Hypomagnesemia; E87.6 Hypokalemia; F32.9 Major depressive disorder, single episode, unspecified; F41.9 Anxiety disorder, unspecified; G47.33 Obstructive sleep apnea (adult) (pediatric); I45.9 Conduction disorder, unspecified; I49.5 Sick sinus syndrome; M10.9 Gout, unspecified; Z20.828 Contact with and (suspected) exposure to other viral communicable diseases; R13.12 Dysphagia, oropharyngeal phase; R65.20 Severe sepsis without septic shock; Z66 Do not resuscitate; Z68.31 Body mass index [BMI] 31.0-31.9, adult; Z88.8 Allergy status to other drugs, medicaments and biological substances; Z95.1 Presence of aortocoronary bypass graft; Z74.01 Bed confinement status; Z79.01 Long term (current) use of anticoagulants; Z79.4 Long term (current) use of insulin; Z79.899 Other long term (current) drug therapy; Z99.81 Dependence on supplemental oxygen; Z95.820 Peripheral vascular angioplasty status with implants and grafts; Z95.810 Presence of automatic (implantable) cardiac defibrillator; Z93.1 Gastrostomy status; Z90.710 Acquired absence of both cervix and uterus; Z90.49 Acquired absence of other specified parts of digestive tract; Z83.3 Family history of diabetes mellitus; Z82.5 Family history of asthma and other chronic lower respiratory diseases; Z82.49 Family history of ischemic heart disease and other diseases of the circulatory system
CPT/HCPCS: 31500; 36415; 36600; 43246; 70450; 71045; 80048; 80053; 80076; 81001; 82550; 82803; 82945; 82948; 83036; 83605; 83630; 83735; 83874; 83880; 84100; 84132; 84145; 84157; 84443; 84484; 84550; 85025; 85027; 85610; 85730; 86788; 86789; 86900; 86901; 87040; 87071; 87077; 87088; 87177; 87186; 87205; 87328; 87426; 87483; 87507; 89051; 92610; 93005; 93306; 93356; 93971; 94002; 94003; 94640; 94664; 95816; 97039; 99291; C1894; G0378; J0133; J0282; J0360; J1650; J1940; J1953; J2543; J2704; J2920; J3010; J3370; J3475; J3490; J7030; J7040; J7042; J7050; J7060; J7070; J7120; J7608; U0003